=== PATIENT | female | born 1960 | race Caucasian/White ===

== ENCOUNTER 2018-07-11 09:06 | Inpatient (IN) ==
--- NOTE | 2018-07-11 09:51 | ED ---
HPI General Chief complaint: Neuro Symptoms/Deficit Stated complaint: Medical Time Seen by Provider: 07/11/18 09:30 History of Present Illness HPI narrative: Patient is a 58-year-old female presents emergency department for evaluation of left hand weakness. Patient states been going on for the past 2-3 days. Patient states she is unable to grasp, she is unable really to move or perform tasks of daily living with her left hand. Has not really noticed any other problems. No history of atrial fibrillation, not on any blood thinners. No chest pain no headache no shortness of breath no abdominal pain. Symptoms moderate, for the past 3 days, constant, associated signs symptoms in context as above. Related Data Home Medications Medication Instructions Recorded Confirmed No Known Home Medications 07/11/18 07/11/18 Allergies Allergy/AdvReac Type Severity Reaction Status Date / Time No Known Allergies Allergy Unverified 07/11/18 09:28 Review of Systems ROS: all other systems reviewed are negative [facility] Medical History Medical History No significant past medical history (Acute) Smoker (Acute) Surgical History Surgical History Hx of hand surgery (Acute) Social History Social History Substance History: No History of Abuse Second Hand Smoke Exposure: Yes Smoking Status: Never smoker Tobacco Type: Cigarettes How Often Do You Have a Drink Containing Alcohol: Monthly or less Recent Travel in [place] within the Last 8 Weeks: No Recent Out of Country Travel within the Last 8 Weeks: No Immunization History Tetanus Immunization: >5 Years Hx Influenza Vaccine This Season: No Exam Narrative Exam Narrative: GENERAL: Well-developed anxious appearing female who appears nontoxic. Thin. SKIN: Focused skin assessment warm/dry. HEAD: Atraumatic. Normocephalic. EYES: Pupils equal and round. No scleral icterus. No injection or drainage. ENT: No nasal bleeding or discharge. Mucous membranes pink and moist. NECK: Trachea midline. No JVD. CARDIOVASCULAR: Regular rate and rhythm. No murmur appreciated. RESPIRATORY: No accessory muscle use. Clear to auscultation. Breath sounds equal bilaterally. GASTROINTESTINAL: Abdomen soft, non-tender, nondistended. Hepatic and splenic margins not palpable. MUSCULOSKELETAL: No obvious deformities. No clubbing. No cyanosis. No edema. NEUROLOGICAL: Awake and alert and oriented, patient has an obvious facial droop on the left side of her face. The upper distribution of cranial nerve VII is unaffected. Extract movements are intact. Vision intact. Visual fritz intact. 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 She has severe limitations of flexion of the elbow, she has had limitations of shrugging her shoulder. There is also leg drift on the left side. Plantarflexion is relatively spared and 5 out of 5 strength bilaterally. PSYCHIATRIC: Appropriate mood and affect; insight and judgment normal. Course Initial Documented Vital Signs Temperature 97.7 F 07/11/18 09:10 Pulse Rate 74 07/11/18 09:10 Respiratory Rate 16 07/11/18 09:10 Blood Pressure 135/64 07/11/18 09:10 Pulse Oximetry 97 07/11/18 09:10 Last Documented Vital Signs Temperature 97.4 F L 07/11/18 16:00 Pulse Rate 54 L 07/11/18 16:00 Respiratory Rate 18 07/11/18 16:00 Blood Pressure 109/55 L 07/11/18 16:00 Pulse Oximetry 97 07/11/18 16:00 NIH Stroke Scale NIH Stroke Scale Level of Consciousness: 0-Alert Orientation Questions: 0-Answers both correct Responds to Commands: 0-Both tasks correct Gaze Eye Movement: 0-Horizontal movement WNL Visual Fritz: 0-No visual field defect Facial Movement: 3-Complete unilateral palsy Motor Functions Arm LEFT: 1-Drift before 10 seconds Motor Functions Arm RIGHT: 0-No drift Motor Functions Leg LEFT: 1-Drift before 5 seconds Motor Functions Leg RIGHT: 0-No drift Limb Ataxia: 0-No ataxia Sensory Loss: 0-No sensory loss Best Language: 0-Normal Articulation: 0-Normal Extinction or Inattention Sensory: 0-Absent Total: 5 Medical Decision Making MDM Narrative Medical decision making narrative: Patient room to the emergency department, it appears as though the patient has had a right MCA stroke. I have informed the patient this on arrival and is doing workup has been ordered. Patient will obligate need for admission to the hospital. EKG is actually a sinus rhythm. She is protecting her airway and cognitively is intact. She is well outside any time frame for systemic TPA or localized intervention from interventional radiology. After admission to Dr. Nieto, MRI results, this is actually malignancy with possibly some vasogenic edema. We discussed upgrade to atleast [place] [facility] care for close neurologic monitoring. Medical Screen Exam Complete: Yes Emergency Medical Condition: Yes Lab Data Result diagrams: 07/11/18 09:50 07/11/18 09:50 Lab Results 07/11/18 07/11/18 07/11/18 Range/Units 09:50 09:50 10:00 WBC 13.0 H (4.0-11.0) th/mm3 RBC 4.20 (4.00-5.30) mil/mm3 Hgb 11.5 L (11.6-15.3) gm/dL Hct 35.1 (35.0-46.0) % MCV 83.5 (80.0-100.0) fL MCH 27.4 (27.0-34.0) pg MCHC 32.8 (32.0-36.0) % RDW 14.3 (11.6-17.2) % Plt Count 369 (150-450) th/mm3 MPV 8.4 (7.0-11.0) fL Neut % (Auto) 58.5 (16.0-70.0) % Lymph % (Auto) 18.0 (9.0-44.0) % [place] % (Auto) 6.2 (0.0-8.0) % Eos % (Auto) 16.1 H (0.0-4.0) % Baso % (Auto) 1.2 (0.0-2.0) % Neut # (Auto) 7.6 (1.8-7.7) th/mm3 Lymph # (Auto) 2.3 (1.0-4.8) th/mm3 [place] # (Auto) 0.8 (0.0-0.9) th/mm3 Eos # (Auto) 2.1 H (0.0-0.4) th/mm3 Baso # (Auto) 0.2 (0.0-0.2) th/mm3 WBC Differential . Differential Comment Auto diff final Sodium 141 (136-145) meq/L Potassium 4.1 (3.5-5.1) meq/L Chloride 109 H (98-107) meq/L Carbon Dioxide 26.3 (21.0-32.0) meq/L Anion Gap 6 (5-15) meq/L BUN 9 (7-18) mg/dL Creatinine 0.60 (0.50-1.00) mg/dL Estimated GFR Greater than 89 (>89) mL/min POC Glucose (68-110) mg/dl Random Glucose 83 (74-106) mg/dL Calcium 8.2 L (8.5-10.1) mg/dL Total Bilirubin 0.3 (0.2-1.0) mg/dL AST 35 (15-37) U/L ALT 53 (10-53) U/L Alkaline Phosphatase 143 H (45-117) U/L Troponin I Less than 0.02 L (0.02-0.05) ng/mL Total Protein 7.1 (6.4-8.2) g/dL Albumin 3.1 L (3.4-5.0) g/dL Urine Color Straw (Yellw/Straw) Urine Clarity Clear (Clear) Urine pH 5.0 (5.0-8.5) Ur Specific [place] 1.004 (1.002-1.035) Urine Protein Negative (Neg-Trace) mg/dL Urine Glucose (UA) Negative (Negative) mg/dL Urine Ketones Negative (Negative) mg/dL Urine Occult Blood Moderate H (Negative) Urine Nitrate Negative (Negative) Urine Bilirubin Negative (Negative) Urine Urobilinogen Less than 2 (Less than 2) mg/dL Ur Leukocyte Esterase Negative (Negative) Urine RBC 2 (0-3) /hpf Urine WBC 1 (0-5) /hpf Ur Squamous Epith Cells 1 (0-5) /hpf Micro UA Comment Culture not ind Ur Microscopic Review Not Reportable Urine Culture Comments Culture not ind 07/11/18 Range/Units 16:43 WBC (4.0-11.0) th/mm3 RBC (4.00-5.30) mil/mm3 Hgb (11.6-15.3) gm/dL Hct (35.0-46.0) % MCV (80.0-100.0) fL MCH (27.0-34.0) pg MCHC (32.0-36.0) % RDW (11.6-17.2) % Plt Count (150-450) th/mm3 MPV (7.0-11.0) fL Neut % (Auto) (16.0-70.0) % Lymph % (Auto) (9.0-44.0) % [place] % (Auto) (0.0-8.0) % Eos % (Auto) (0.0-4.0) % Baso % (Auto) (0.0-2.0) % Neut # (Auto) (1.8-7.7) th/mm3 Lymph # (Auto) (1.0-4.8) th/mm3 [place] # (Auto) (0.0-0.9) th/mm3 Eos # (Auto) (0.0-0.4) th/mm3 Baso # (Auto) (0.0-0.2) th/mm3 WBC Differential Differential Comment Sodium (136-145) meq/L Potassium (3.5-5.1) meq/L Chloride (98-107) meq/L Carbon Dioxide (21.0-32.0) meq/L Anion Gap (5-15) meq/L BUN (7-18) mg/dL Creatinine (0.50-1.00) mg/dL Estimated GFR (>89) mL/min POC Glucose 105 (68-110) mg/dl Random Glucose (74-106) mg/dL Calcium (8.5-10.1) mg/dL Total Bilirubin (0.2-1.0) mg/dL AST (15-37) U/L ALT (10-53) U/L Alkaline Phosphatase (45-117) U/L Troponin I (0.02-0.05) ng/mL Total Protein (6.4-8.2) g/dL Albumin (3.4-5.0) g/dL Urine Color (Yellw/Straw) Urine Clarity (Clear) Urine pH (5.0-8.5) Ur Specific [place] (1.002-1.035) Urine Protein (Neg-Trace) mg/dL Urine Glucose (UA) (Negative) mg/dL Urine Ketones (Negative) mg/dL Urine Occult Blood (Negative) Urine Nitrate (Negative) Urine Bilirubin (Negative) Urine Urobilinogen (Less than 2) mg/dL Ur Leukocyte Esterase (Negative) Urine RBC (0-3) /hpf Urine WBC (0-5) /hpf Ur Squamous Epith Cells (0-5) /hpf Micro UA Comment Ur Microscopic Review Urine Culture Comments Imaging Data Radiologist's impression: Abdomen/Pelvis CT 07/11/18 00:00 CONCLUSION: 1. Right middle lobe malignant appearing mass suspicious for bronchogenic malignancy. 2. Left adrenal nodule is noted and indeterminate. Metastatic deposit can have this appearance. Chest CT 07/11/18 00:00 CONCLUSION: 1. There is a dominant partially necrotic-appearing soft tissue mass in the right middle lobe suspicious for primary bronchogenic malignancy, with a few scattered bilateral tiny noncalcified nodules which are nonspecific and the possibility of metastatic deposits are not excluded. There is right hilar adenopathy characteristic of metastatic disease. Head MRI 07/11/18 00:00 CONCLUSION: 1. Metastatic disease as above. Given the appearance most likely site is either lung or breast. Chest X-Ray 07/11/18 09:45 CONCLUSION: 6 mm mass right lower lobe suspicious for neoplastic process with minimal postobstructive changes. CT scan of the chest with contrast is suggested. Head CT 07/11/18 09:45 CONCLUSION: 1. Abnormal right mid sylvian region suspicious for neoplastic process. 2. MRI of the brain is suggested. . Head MRI 07/11/18 09:45 CONCLUSION: 1. Vasogenic edema in the right sylvian region suspicious for neoplastic process 2. Secondary of edema in the right superior cerebellar hemisphere that could be edema from an ischemic process. 3. There is no parenchymal hemorrhage. 4. Delayed contrasted CT scan is pending. Head MRA 07/11/18 09:45 CONCLUSION: 1. Negative MRA of the brain Neck MRA 07/11/18 09:45 CONCLUSION: 1. Negative MRA of the carotids for hemodynamically significant stenosis 2. Both vertebral arteries are patent. Percent stenosis is calculated using the diameter of the stenotic region over the diameter of the normal distal internal carotid artery Discharge Plan Discharge Disposition Patient Disposition: 30 Still Patient Discharge Condition Condition: Fair Discharge Details Diagnosis: Stroke, Brain metastasis Physicians Team ED Provider: Dane Bess Primary Care Provider: Michael Verduzco Attending Provider: Ta Nieto Other Providers: Jorge Corcoran ; Dakota Angela Justin D Discharge Interventions Interventions: ED Discharge Assessment Last Done: 07/11/18 14:22 Vital Signs Last Done: 07/11/18 14:22 Status ED Status: Left Department Discharge Information Discharge Date/Time: 07/11/18 14:25
--- NOTE | 2018-07-11 10:11 | XR ---
EXAM DATE: 07/11/2018 10:08 AM EDT AGE/SEX: 58 years / Female INDICATIONS: Short of breath CLINICAL DATA: This is the patient's initial encounter. Patient reports that signs and symptoms have been present for 1 day and indicates a pain score of 0/10. MEDICAL/SURGICAL HISTORY: None. None. COMPARISON: No prior exams available for comparison. FINDINGS: 6 cm mass right lower lobe. Left lung clear. The heart and pulmonary vascularity are normal. . The po rtion of the bony skeleton visualized is unremarkable. . CONCLUSION: 6 mm mass right lower lobe suspicious for neoplastic process with minimal postobstructive changes. CT scan of the chest with contrast is suggested. Electronically signed by: Deshawn Edouard MD 07/11/2018 10:09 AM EDT
[2018-07-11 10:21] LABS: Baso # (Auto) 0.2 th/mm3 (0.0-0.2); Baso % (Auto) 1.2 % (0.0-2.0); Eos # (Auto) 2.1 th/mm3 (0.0-0.4); Eos % (Auto) 16.1 % (0.0-4.0); Hematocrit 35.1 % (35.0-46.0); Hemoglobin 11.5 gm/dL (11.6-15.3); Lymph # (Auto) 2.3 th/mm3 (1.0-4.8); Mean Corpuscular HGB Conc 32.8 % (32.0-36.0); Mean Corpuscular Hemoglobin 27.4 pg (27.0-34.0); Mean Corpuscular Volume 83.5 fL (80.0-100.0); Mean Platelet Volume 8.4 fL (7.0-11.0); Mono # (Auto) 0.8 th/mm3 (0.0-0.9); Mono % (Auto) 6.2 % (0.0-8.0); Neut # (Auto) 7.6 th/mm3 (1.8-7.7); Neut % (Auto) 58.5 % (16.0-70.0); Platelet Count 369 th/mm3 (150-450); Red Cell Distribution Width 14.3 % (11.6-17.2)
--- NOTE | 2018-07-11 10:24 | CT ---
EXAM DATE: 07/11/2018 10:18 AM EDT AGE/SEX: 58 years / Female INDICATIONS: Left sided facial droop and left hand weakness for three days. CLINICAL DATA: This is the patient's initial encounter. Patient reports that signs and symptoms have been present for 1 day and indicates a pain score of 0/10. MEDICAL/SURGICAL HISTORY: None. None. RADIATION DOSE: 56.35 CTDI (mGy) COMPARISON: [facility] [place] W/O CONTRAST, 07/11/2018. . TECHNIQUE: CT of the head without contrast. Using automated exposure control and adjustment of the mA and/or kV according to patient size, radiation dose was kept as low as reasonably achievable to ob tain optimal diagnostic quality images. DICOM format image data is available electronically for revi ew and comparison. FINDINGS: Study is abnormal. There is a large area of vasogenic edema in the right mid sylvian region or suspic ious for neoplastic process and a subacute stroke. Left hemisphere is unremarkable. Posterior fossa unremarkable. CONCLUSION: 1. Abnormal right mid sylvian region suspicious for neoplastic process. 2. MRI of the brain is suggested. . Electronically signed by: Deshawn Edouard MD 07/11/2018 10:23 AM EDT
[2018-07-11 10:28] LABS: Bilirubin,Urine Negative (Negative); Clarity,Urine Clear (Clear); Color,Urine Straw (Yellw/Straw); Glucose,Urine (UA) Negative (Negative); Leukocyte Esterase,Urine Negative (Negative); Nitrite,Urine Negative (Negative); Specific Gravity,Urine 1.004 (1.002-1.035); Squamous Epithelial Cell,Urine 1 /hpf (0-5)
[2018-07-11 11:02] LABS: Alkaline Phosphatase 143 U/L (45-117); Total Protein 7.1 g/dL (6.4-8.2)
[2018-07-11 11:20] LABS: Alanine Aminotransferase 53 U/L (10-53); Albumin 3.1 g/dL (3.4-5.0); Anion Gap 6 meq/L (5-15); Aspartate Aminotransferase 35 U/L (15-37); Blood Urea Nitrogen 9 mg/dL (7-18); Calcium 8.2 mg/dL (8.5-10.1); Carbon Dioxide 26.3 meq/L (21.0-32.0); Chloride 109 meq/L (98-107); Glomerular Filtration Rate Greater Than 89 mL/min (>89); Glucose,Random 83 mg/dL (74-106); Potassium 4.1 meq/L (3.5-5.1); Sodium 141 meq/L (136-145)
[2018-07-11] MEDS ORDERED: Gadobutrol PF 10 MMOL/10 ML Vial (for RAD) IV.SIG ONE (11:24)
--- NOTE | 2018-07-11 11:48 | MR ---
EXAM DATE: 07/11/2018 11:34 AM EDT AGE/SEX: 58 years / Female INDICATIONS: Left sided weakness. CLINICAL DATA: This is the patient's initial encounter. Patient reports that signs and symptoms have been present for 3 days and indicates a pain score of 0/10. MEDICAL/SURGICAL HISTORY: None. . Left hand surgery. COMPARISON: [facility] – [place], MRA HEAD W/O CONTRAST, 07/11/2018. . TECHNIQUE: Multiplanar, multisequence examination of the brain was performed without contrast. FINDINGS: Cerebrum: There is edema in the right mid sylvian region without parenchymal hemorrhage. There is min imal restricted diffusion evident. Edema is more in the white matter in the nicolas matter and does not extend to the cortical surface of the brain also suspicious for a neoplastic process. Scattered areas of periventricular white matter changes are noted in the supra tentorial brain. Ventricular size is appropriate. There is no parenchymal hemorrhage. There are no extra-axial fluid collections appreciat ed. Posterior fossa: Edema is seen in the medial right cerebellar hemisphere inferior cerebellar distribu tion that could be ischemia. Subtle metastatic disease cannot be entirely excluded. Fourth ventricle is midline. Patient is no return for delayed postcontrast imaging since she had contrast with the MRA of the cifuentes tids. CONCLUSION: 1. Vasogenic edema in the right sylvian region suspicious for neoplastic process 2. Secondary of edema in the right superior cerebellar hemisphere that could be edema from an ischem ic process. 3. There is no parenchymal hemorrhage. 4. Delayed contrasted CT scan is pending. Electronically signed by: Deshawn Edouard MD 07/11/2018 11:47 AM EDT
--- NOTE | 2018-07-11 11:50 | MR ---
EXAM DATE: 07/11/2018 11:31 AM EDT AGE/SEX: 58 years / Female INDICATIONS: Left sided weakness. CLINICAL DATA: This is the patient's initial encounter. Patient reports that signs and symptoms have been present for 3 days and indicates a pain score of 0/10. MEDICAL/SURGICAL HISTORY: None. . Left hand surgery. COMPARISON: [facility] [place], MR HEAD W/O CONTRAST, 07/11/2018. . TECHNIQUE: 3D [id number] MRA was performed. Source images, multiplanar STS MIP, and 3D volum e MIP reconstructions were reviewed. FINDINGS: There is excellent visualization of the major intracranial arteries out to the second-order branch ve ssels. There is no evidence for aneurysm, vessel truncation or stenosis, and no evidence for vascula r malformation. CONCLUSION: 1. Negative MRA of the brain Electronically signed by: Deshawn Edouard MD 07/11/2018 11:49 AM EDT
--- NOTE | 2018-07-11 12:00 | MR ---
EXAM DATE: 07/11/2018 11:55 AM EDT AGE/SEX: 58 years / Female INDICATIONS: Left sided weakness. CLINICAL DATA: This is the patient's initial encounter. Patient reports that signs and symptoms have been present for 3 days and indicates a pain score of 0/10. MEDICAL/SURGICAL HISTORY: None. . Left hand surgery. COMPARISON: No prior exams available for comparison. TECHNIQUE: 10cc ml Gadavist (gadobutrol) contrast infused MRA (single exam dose) of the extracrania l circulation was performed using a neurovascular coil. Postprocessing was performed, including rota ting sub-volume maximum intensity projections of each carotid artery, rotating full-volume maximum in tensity projections of both carotid arteries, sagittal and coronal sliding thin-slab reformations of each carotid artery, and left oblique sliding thin-slab reformation through the aortic arch to includ e the origin of the arch branch vessels. FINDINGS: Aortic Arch : There is a three-vessel origin of the great vessels from the aorta. No evidence of o stial narrowing. Right Carotid : The common carotid artery is intact. The carotid bulb has a normal configuration wi thout ulceration or narrowing. The internal carotid artery lumen is smooth without stenosis. The ex ternal carotid artery is intact. Left Carotid : The common carotid artery is intact. The carotid bulb has a normal configuration wit hout ulceration or narrowing. The internal carotid artery lumen is smooth without stenosis. The ext ernal carotid artery is intact. Vertebrals : The vertebral arteries have a symmetric diameter. No stenotic lesions are seen. CONCLUSION: 1. Negative MRA of the carotids for hemodynamically significant stenosis 2. Both vertebral arteries are patent. Percent stenosis is calculated using the diameter of the stenotic region over the diameter of the nor mal distal internal carotid artery Electronically signed by: Deshawn Edouard MD 07/11/2018 11:59 AM EDT
--- NOTE | 2018-07-11 12:03 | P.CONNEU ---
History of Present Illness Service: Neurology Primary Care Provider: Michael Verduzco Chief Complaint: Stroke History of Present Illness: 58-year-old female admitted for left-sided weakness. Symptoms of left-sided weakness 3 days. Therefore not a candidate for IV TPA. Does not take any medications. Smokes 2 packs a day's been doing for decades. 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 Denies any head or neck trauma any history of fever night sweats chills any history of previous TIA stroke or A. fib. No history of blood clots. CT brain demonstrates right hemispheric lesion Review of Systems All other systems reviewed negative except as stated in HPI PMFSH - History History Provided By: Patient - Medical History Medical History: Medical History (Last Updated 07/11/18 @ 09:34 by Marjorie Graham) No significant past medical history Smoker - Surgical History Surgical History: Surgical History (Last Updated 07/11/18 @ 09:34 by Marjorie Graham) Hx of hand surgery - Tobacco History Second Hand Smoke Exposure: Yes Tobacco Use In Past 30 Days: Yes Smoking Status: Never smoker Tobacco Type: Cigarettes - Alcohol History How Often Do You Have a Drink Containing Alcohol: Monthly or less - Substance Use History Substance History: No History of Abuse - Travel History Recent Travel in the [place] Within the Last 8 Weeks: No Recent Travel Out of the Country Within the Last 8 Weeks: No - Immunization History Tetanus Immunization: >5 Years Hx Influenza Vaccine This Season: No Medications and Allergies Active Medications: Active Medications Sodium Chloride (Ns Flush) 2 ml IV.FLUSH PRN PRN PRN Reason: FLUSH AFTER USING IV ACCESS Allergies Allergy/AdvReac Type Severity Reaction Status Date / Time No Known Allergies Allergy Unverified 07/11/18 09:28 Home Medications Medication Instructions Recorded Confirmed Type No Known Home Medications 07/11/18 07/11/18 History Exam Vital signs: Vital Signs 07/11/18 09:10 07/11/18 09:32 07/11/18 09:45 Temperature 97.7 F 97.8 F Pulse Rate 74 60 65 Respiratory Rate 16 16 Blood Pressure 135/64 138/62 Pulse Oximetry 97 99 98 07/11/18 10:50 Temperature 97.8 F Pulse Rate 61 Respiratory Rate 16 Blood Pressure 143/60 H Pulse Oximetry 98 Intake & Output 07/10/18 07/11/18 07/11/18 18:59 06:59 18:59 Weight 63.503 kg Narrative: GENERAL: in NAD, SKIN: Warm and dry. HEAD: Atraumatic. Normocephalic. EYES: Pupils equal and round. No scleral icterus. ENT: No nasal bleeding or discharge. Mucous membranes pink and moist. NECK: Trachea midline. No JVD. CARDIOVASCULAR: Regular rate and rhythm. RESPIRATORY: No accessory muscle use. GASTROINTESTINAL: Abdomen soft, non-tender, nondistended. MUSCULOSKELETAL: Extremities without clubbing, cyanosis, or edema. No obvious deformities. NEUROLOGICAL: Awake and alert. No aphasia, mildly dysarthric speech, follows, reduced left nasolabial fold, mild left hemiparesis 3-4 out of 5, left hemisensory brisk reflex on the left gait not assessed secondary to fall risk PSYCHIATRIC: Appropriate mood and affect; insight and judgment normal. - Constitutional no acute distress - Routine HEENT Exam Head: Present: normocephalic Results - Labs CBC & Chem 7: 07/11/18 09:50 07/11/18 09:50 Labs: Laboratory Results - last 24 hr 07/11/18 07/11/18 07/11/18 09:50 09:50 10:00 WBC 13.0 H RBC 4.20 Hgb 11.5 L Hct 35.1 MCV 83.5 MCH 27.4 MCHC 32.8 RDW 14.3 Plt Count 369 MPV 8.4 Neut % (Auto) 58.5 Lymph % (Auto) 18.0 [place] % (Auto) 6.2 Eos % (Auto) 16.1 H Baso % (Auto) 1.2 Neut # (Auto) 7.6 Lymph # (Auto) 2.3 [place] # (Auto) 0.8 Eos # (Auto) 2.1 H Baso # (Auto) 0.2 WBC Differential . Differential Comment Auto diff final Sodium 141 Potassium 4.1 Chloride 109 H Carbon Dioxide 26.3 Anion Gap 6 BUN 9 Creatinine 0.60 Estimated GFR Greater than 89 Random Glucose 83 Calcium 8.2 L Total Bilirubin 0.3 AST 35 ALT 53 Alkaline Phosphatase 143 H Troponin I Less than 0.02 L Total Protein 7.1 Albumin 3.1 L Urine Color Straw Urine Clarity Clear Urine pH 5.0 Ur Specific [place] 1.004 Urine Protein Negative Urine Glucose (UA) Negative Urine Ketones Negative Urine Occult Blood Moderate H Urine Nitrate Negative Urine Bilirubin Negative Urine Urobilinogen Less than 2 Ur Leukocyte Esterase Negative Urine RBC 2 Urine WBC 1 Ur Squamous Epith Cells 1 Micro UA Comment Culture not ind Ur Microscopic Review Not Reportable Urine Culture Comments Culture not ind - Imaging Impressions Chest X-Ray 07/11/18 09:45 CONCLUSION: 6 mm mass right lower lobe suspicious for neoplastic process with minimal postobstructive changes. CT scan of the chest with contrast is suggested. Head CT 07/11/18 09:45 CONCLUSION: 1. Abnormal right mid sylvian region suspicious for neoplastic process. 2. MRI of the brain is suggested. . Head MRI 07/11/18 09:45 CONCLUSION: 1. Vasogenic edema in the right sylvian region suspicious for neoplastic process 2. Secondary of edema in the right superior cerebellar hemisphere that could be edema from an ischemic process. 3. There is no parenchymal hemorrhage. 4. Delayed contrasted CT scan is pending. Head MRA 07/11/18 09:45 CONCLUSION: 1. Negative MRA of the brain Review/Management - Diagnosis (1) Brain metastasis Code(s): C79.31 - Secondary malignant neoplasm of brain Status: Acute Current Visit: Yes (2) Tobacco use Code(s): Z72.0 - Tobacco use Status: Acute Current Visit: Yes (3) Lung cancer metastatic to brain Code(s): C34.90 - Malignant neoplasm of unspecified part of unspecified bronchus or lung; C79.31 - Secondary malignant neoplasm of brain Status: Acute Current Visit: Yes - Review/Management Plan: MRI brain findings suggesting vasogenic edema not ischemic stroke. Suspicious for mass lesion with her history of tobacco use and lesion occurring in 2 different brain regions metastatic disease is high on the differential possibly from lung cancer. Chest x-ray suspicious for masses well Recommendations CT abdomen chest pelvis Hematology evaluation Neurosurgical evaluation We will not start steroids until seen by specialists
--- NOTE | 2018-07-11 12:09 | MR ---
EXAM DATE: 07/11/2018 12:04 PM EDT AGE/SEX: 58 years / Female INDICATIONS: Left sided weakness. CLINICAL DATA: This is the patient's initial encounter. Patient reports that signs and symptoms have been present for 3 days and indicates a pain score of 0/10. MEDICAL/SURGICAL HISTORY: None. . Left hand surgery. COMPARISON: [facility] [place], MR HEAD W/O CONTRAST, 07/11/2018. . TECHNIQUE: Multiplanar, multisequence examination of the brain was performed with 10CC ml Gadavist (g adobutrol) contrast as a single exam dose. FINDINGS: Follow-up contrasted acquisitions were obtained following the contrast and MRA of the carotids. These reveal metastatic disease. 3 abnormal areas of contrast enhancement are identified, one high in the right centrum semiovale kaley uring slightly over 1 cm.. 2 are in the right cerebellar hemisphere. Largest in the cerebellar hemisp here measures 1.4 cm. These are associated with [id number]-ji-[id number] edema. CONCLUSION: 1. Metastatic disease as above. Given the appearance most likely site is either lung or breast. Electronically signed by: Deshawn Edouard MD 07/11/2018 12:07 PM EDT
--- NOTE | 2018-07-11 12:48 | CT ---
EXAM DATE: 07/11/2018 12:42 PM EDT AGE/SEX: 58 years / Female INDICATIONS: Neoplasm CLINICAL DATA: This is the patient's initial encounter. Patient reports that signs and symptoms have been present for 2 days and indicates a pain score of 9/10. MEDICAL/SURGICAL HISTORY: Carcinoma, lung. Brain mets . Hand surgery RADIATION DOSE: 5.36 CTDI (mGy) ; Combined studies COMPARISON: [facility], CHEST 1V SINGLE AP, 07/11/2018. . TECHNIQUE: Multiple contiguous axial images were obtained through the chest during bolus infusion of 95ML ml Omnipaque 350 (iohexol) nonionic water-soluble contrast as a cumulative dose for multiple e xams. Images were obtained in suspended respiration using multiple row detector helical technique. Using automated exposure control and adjustment of the mA and/or kV according to patient size, radia tion dose was kept as low as reasonably achievable to obtain optimal diagnostic quality images. DICO M format image data is available electronically for review and comparison. FINDINGS: There is a large partially necrotic irregular soft tissue mass in the right middle lobe abutting the mediastinum. There is surrounding patchy groundglass infiltrate. There is necrotic-appearing right hi lar adenopathy measuring up to 1.5 cm in short axis dimension. There are no pleural or pericardial ef fusion seen. There is a nodule of the lateral limb of the left adrenal gland measuring 1.4 x 1 cm in size. Right adrenal unremarkable. The right middle lobe mass abuts the mediastinum as well as the rig ht middle lobe pleura anteriorly. There are no worrisome osseous lesions. There are 2 nodular foci al yaya the oblique fissure in the right lower lobe measuring 4.7 mm, and 4.5 mm. There are 2 pleural-bas ed nodules along the oblique fissure in the left lower lobe measuring 3.4 mm and 3.7 mm as well as a left lower lobe pleural-based nodule posteriorly measuring 5 mm. There is also a noncalcified pleural -based nodule in the left lower lobe posteriorly measuring 3.9 mm on image 24. CONCLUSION: 1. There is a dominant partially necrotic-appearing soft tissue mass in the right middle lobe suspic ious for primary bronchogenic malignancy, with a few scattered bilateral tiny noncalcified nodules wh ich are nonspecific and the possibility of metastatic deposits are not excluded. There is right hilar adenopathy characteristic of metastatic disease. Electronically signed by: Tylor Arndt MD 07/11/2018 12:47 PM EDT
--- NOTE | 2018-07-11 12:50 | P.HPIM ---
History of Present Illness Service: [place] Primary Care Physician: Michael Verduzco Chief Complaint: Stroke History of Present Illness: Mrs. Aaron is a 58 yo F with PMH of tobacco abuse who presented to [facility] ED with slurred speech and left extremity weakness. 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 She also stated that her left arm was numb. Patient thought this was arthritis so kept working until she was told to leave. Patient states that she did not notice change in speech but she was told that her speech was slurred by her boyfriend 1.5 weeks ago. Last night, patient noticed that her left leg was weaker, and that her left arm started to hurt. For these reasons, she called her marketing project manager and was brought to the ED today. Patient does not report associated vision changes. She has chronic headaches but no changes. She denies change in bowel/bladder dysfunction with exception of her chronic constipation. She has had more shortness of breath lately but denies chest pain. Patient reports ~80 pk years smoking and left hand reconstruction but otherwise denies medical problems. PMH- no problems PSH- reconstruction of L hand Allergies- none FH- family - heart attacks, cancer; unspecified SH- Smoking- 2PPD for since 17. No drinking, no drugs Inpatient Certification: I certify that the inpatient services were ordered in accordance with Medicare regulations governing the order. This includes certification that hospital inpatient services are reasonable and necessary and in the case of services not specified as inpatient-only under 42 CFR 419.22(n), that they are appropriately provided as inpatient services in accordance to with the 2-midnight benchmark under 43 CFR 412.3(e) Estimated Total Length of Stay (Days): 3 Plans for Post Hospital Care: Home Review of Systems All other systems reviewed negative except as stated in HPI Ears, Nose, Mouth, and Throat: Denies sinus pain Respiratory: Denies cough Gastrointestinal: Denies loose stools, Denies nausea, Denies vomiting Genitourinary: Denies painful urination, Denies urinary urgency Musculoskeletal: Reports muscle weakness, Reports radiating pain into limb Skin/Breast: Denies rash, Denies sores Neurologic: Denies confusion, Denies dizziness Hematologic/Lymphatic: Denies easy bleeding, Denies easy bruising PMFSH - History History Provided By: Patient - Medical History Medical History: Medical History (Last Updated 07/11/18 @ 09:34 by Marjorie Graham) No significant past medical history Smoker - Surgical History Surgical History: Surgical History (Last Updated 07/11/18 @ 09:34 by Marjorie Graham) Hx of hand surgery - Family History Family History: Family History (Last Updated 07/12/18 @ 00:22 by Ta Nieto MD) Other Cancer Coronary artery disease - Social History I have reviewed the patient's Social History: Yes - Tobacco History Second Hand Smoke Exposure: Yes Tobacco Use In Past 30 Days: Yes Smoking Status: Never smoker Tobacco Type: Cigarettes - Alcohol History How Often Do You Have a Drink Containing Alcohol: Monthly or less - Substance Use History Substance History: No History of Abuse - Travel History Recent Travel in the [place] Within the Last 8 Weeks: No Recent Travel Out of the Country Within the Last 8 Weeks: No - Immunization History Tetanus Immunization: >5 Years Hx Influenza Vaccine This Season: No Medications and Allergies Active Medications: Active Medications Acetaminophen (Tylenol) 650 mg PO Q4H PRN PRN Reason: Temp > 100.4 Ondansetron HCl (Zofran Inj) 4 mg IV.PUSH Q6H PRN PRN Reason: NAUSEA OR VOMITING Sodium Chloride (Ns Flush) 2 ml IV.FLUSH PRN PRN PRN Reason: FLUSH AFTER USING IV ACCESS Allergies Allergy/AdvReac Type Severity Reaction Status Date / Time No Known Allergies Allergy Unverified 07/11/18 09:28 Home Medications Medication Instructions Recorded Confirmed Type No Known Home Medications 07/11/18 07/11/18 History Exam Vital signs: Vital Signs 07/11/18 09:10 07/11/18 09:32 07/11/18 09:45 Temperature 97.7 F 97.8 F Pulse Rate 74 60 65 Respiratory Rate 16 16 Blood Pressure 135/64 138/62 Pulse Oximetry 97 99 98 07/11/18 10:50 07/11/18 12:37 Temperature 97.8 F 97.8 F Pulse Rate 61 67 Respiratory Rate 16 16 Blood Pressure 143/60 H 124/77 Pulse Oximetry 98 98 Intake & Output 07/10/18 07/11/18 07/11/18 18:59 06:59 18:59 Weight 63.503 kg Narrative: Gen: No acute distress Skin: No visible lesions EYES: EOM I. PERRLA ENT: Mucous membranes pink and moist. NECK: No cervical lymphadenopathy; questionable supraclavicular lymphadenopathy CARDIOVASCULAR: Regular rate and rhythm. No murmurs appreciated. RESPIRATORY: CTAB; normal rate GASTROINTESTINAL: Abdomen soft, non-tender, nondistended. Hepatic and splenic margins not palpable. MUSCULOSKELETAL: No Le edema or calf tenderness. Muscle strength as below NEUROLOGICAL: Awake, alert, oriented. Unilateral facial droop on left. Slurred speech. EOM I. LUE with minimal tablet repair strength; she is able to lift arm to ~ level of clavicle with difficulty. patient able to lift bilateral lower extremities against gravity; left lower extremity asymmetrically weaker. Normal peripheral sensation. PSYCHIATRIC: Anxious; intermittently tearful Results - Labs CBC & Chem 7: 07/11/18 09:50 07/11/18 09:50 Labs: Short CBC 07/11/18 Range/Units 09:50 WBC 13.0 H (4.0-11.0) th/mm3 Hgb 11.5 L (11.6-15.3) gm/dL Hct 35.1 (35.0-46.0) % Plt Count 369 (150-450) th/mm3 BMP 07/11/18 09:50 Sodium 141 Potassium 4.1 Chloride 109 H Carbon Dioxide 26.3 BUN 9 Creatinine 0.60 Calcium 8.2 L Cardiac Enzymes 07/11/18 Range/Units 09:50 Troponin I Less than 0.02 L (0.02-0.05) ng/mL Liver Function 07/11/18 Range/Units 09:50 Total Bilirubin 0.3 (0.2-1.0) mg/dL AST 35 (15-37) U/L ALT 53 (10-53) U/L Alkaline Phosphatase 143 H (45-117) U/L Albumin 3.1 L (3.4-5.0) g/dL Urine 07/11/18 Range/Units 10:00 Urine Color Straw (Yellw/Straw) Urine Clarity Clear (Clear) Urine pH 5.0 (5.0-8.5) Ur Specific [place] 1.004 (1.002-1.035) Urine Protein Negative (Neg-Trace) mg/dL Urine Glucose (UA) Negative (Negative) mg/dL - Imaging Impressions Head MRI 07/11/18 00:00 CONCLUSION: 1. Metastatic disease as above. Given the appearance most likely site is either lung or breast. Chest X-Ray 07/11/18:45 CONCLUSION: 6 mm mass right lower lobe suspicious for neoplastic process with minimal postobstructive changes. CT scan of the chest with contrast is suggested. Head CT 07/11/18 09:45 CONCLUSION: 1. Abnormal right mid sylvian region suspicious for neoplastic process. 2. MRI of the brain is suggested. . Head MRI 07/11/18:45 CONCLUSION: 1. Vasogenic edema in the right sylvian region suspicious for neoplastic process 2. Secondary of edema in the right superior cerebellar hemisphere that could be edema from an ischemic process. 3. There is no parenchymal hemorrhage. 4. Delayed contrasted CT scan is pending. Head MRA 07/11/18:45 CONCLUSION: 1. Negative MRA of the brain Neck MRA 07/11/18:45 CONCLUSION: 1. Negative MRA of the carotids for hemodynamically significant stenosis 2. Both vertebral arteries are patent. Percent stenosis is calculated using the diameter of the stenotic region over the diameter of the normal distal internal carotid artery Caprini VTE Risk Assessment Caprini VTE Risk Assessment: Moderate/High Risk (score >= 2) Caprini Risk Assessment Model: Point Value = 1 Point Value = 2 Point Value = 3 Point Value = 5 Age 41-60 Minor surgery BMI > 25 kg/m2 Swollen legs Varicose veins or History of unexplained or recurrent spontaneous Oral contraceptives or hormone replacement Sepsis (< 1 month) Serious lung disease, including pneumonia (< 1 month) Abnormal pulmonary function Acute myocardial infarction Congestive heart failure (< 1 month) History of inflammatory bowel disease Medical patient at bed rest Age 61-74 Arthroscopic surgery Major open surgery (> 45 min) Laparoscopic surgery (> 45 min) Malignancy Confined to bed (> 72 hours) Immobilizing plaster cast Central venous access Age >= 75 History of VTE Family history of VTE Factor V Leiden Prothrombin [id number] Lupus anticoagulant Anticardiolipin antibodies Elevated serum homocysteine Heparin-induced thrombocytopenia Other congenital or acquired thrombophilia Stroke (< 1 month) Elective arthroplasty Hip, pelvis, or leg fracture Acute spinal cord injury (< 1 month) Prophylaxis Regimen: Total Risk Factor Score Risk Level Prophylaxis Regimen 0-1 Low Early ambulation 2 Moderate Order ONE of the following: *Sequential Compression Device (SCD) *Heparin 5000 units SQ BID 3-4 Higher Order ONE of the following medications: *Heparin 5000 units SQ TID *Enoxaparin/Lovenox 40 mg SQ daily (WT < 150 kg, CrCl > 30 mL/min) *Enoxaparin/Lovenox 30 mg SQ daily (WT < 150 kg, CrCl > 10-29 mL/min) *Enoxaparin/Lovenox 30 mg SQ BID (WT < 150 kg, CrCl > 30 mL/min) AND/OR *Sequential Compression Device (SCD) 5 or more Highest Order ONE of the following medications: *Heparin 5000 units SQ TID (Preferred with Epidurals) *Enoxaparin/Lovenox 40 mg SQ daily (WT < 150 kg, CrCl > 30 mL/min) *Enoxaparin/Lovenox 30 mg SQ daily (WT < 150 kg, CrCl > 10-29 mL/min) *Enoxaparin/Lovenox 30 mg SQ BID (WT < 150 kg, CrCl > 30 mL/min) AND *Sequential Compression Device (SCD) Assessment and Plan - Plan Mrs. Aaron is a 58 yo F with: Neurologic deficits Impression: Facial droop, left upper extremity and lower extremity weakness. Imaging suggestive of metastatic cancer Head CT- 1. Abnormal right mid sylvian region suspicious for neoplastic process. 2. MRI of the brain is suggested. Head MRI- 1. Metastatic disease as above. Given the appearance most likely site is either lung or breast. MRA head- negative Neck MRA- negative -Neurology consulted -Neurosurgery consulted -No steroids until NS eval -PT/ST/OT -DVT PPX Suspicion for malignancy Impression: Concern for metastatic cancer CT Chest- There is a dominant partially necrotic-appearing soft tissue mass in the right middle lobe suspicious for primary bronchogenic malignancy, with a few scattered bilateral tiny noncalcified nodules which are nonspecific and the possibility of metastatic deposits are not excluded. There is right hilar adenopathy characteristic of metastatic disease. CT A/P- 1. Right middle lobe malignant appearing mass suspicious for bronchogenic malignancy. 2. Left adrenal nodule is noted and indeterminate. Metastatic deposit can have this appearance. CXR- 6mm mass in RLL suspicious for neoplastic process with minimal postobstructive changes -Hematology consulted Anxiety Imrpession: Patient tearful, intermittently anxious about high suspicion for malignancy due to recent family from cancer -Discussed PRN anxiolytic if desired; will give Ativan as needed DVT PPX -SCD's until specialists evaluation; will plan to start chemical PPX based on any biopsy plans Code Status: Full code
--- NOTE | 2018-07-11 13:15 | CT ---
EXAM DATE: 07/11/2018 12:43 PM EDT AGE/SEX: 58 years / Female INDICATIONS: Anomaly CLINICAL DATA: This is the patient's initial encounter. Patient reports that signs and symptoms have been present for 2 days and indicates a pain score of 9/10. MEDICAL/SURGICAL HISTORY: Carcinoma, lung. Brain mets . Hand surgery ORAL CONTRAST: No oral contrast ingested. RADIATION DOSE: 5.36 CTDI (mGy) ; Combined studies COMPARISON: [facility] [place], CT CHEST W CONTRAST, 07/11/2018. . TECHNIQUE: Multiple contiguous axial images were obtained through the abdomen and pelvis following b olus infusion of 95ML ml Omnipaque 350 (iohexol) nonionic water-soluble contrast as a cumulative do se for multiple exams. No oral contrast ingested. Using automated exposure control and adjustment of the mA and/or kV according to patient size, radiation dose was kept as low as reasonably achievable to obtain optimal diagnostic quality images. DICOM format image data is available electronically for review and comparison. FINDINGS: Please refer to CT chest report from the same day for description of supradiaphragmatic findings. Par tially necrotic right middle lobe malignant appearing mass identified. There is a 1.4 x 1 cm left adr enal nodule involving the lateral limb. The kidneys, spleen, pancreas, stomach, liver, gallbladder ar e unremarkable. Urinary bladder is unremarkable. 2.5 cm uterine fibroid suspected at the level of the fundus of the uterus to the left of midline. No adnexal masses. No adenopathy. The osseous structure s are intact. CONCLUSION: 1. Right middle lobe malignant appearing mass suspicious for bronchogenic malignancy. 2. Left adrenal nodule is noted and indeterminate. Metastatic deposit can have this appearance. Electronically signed by: Tylor Arndt MD 07/11/2018 1:14 PM EDT
[2018-07-11] MEDS: Sod Chloride 0.9% Inj 1,000 ML IV.CONT SCH (14:07)
[2018-07-11] MEDS ORDERED: LORazepam 0.5 MG Tablet PO PRN (16:46)
[2018-07-12] MEDS: Sod Chloride 0.9% Inj 1,000 ML IV.CONT SCH ×3 (00:20→19:14)
--- NOTE | 2018-07-12 02:59 | MB ---
cc: Mike Angela MD DATE: 07/11/2018 REASON FOR CONSULTATION: Consult requested by neurologist, Dr. Corcoran, for evaluation of metastatic disease to the brain. HISTORY OF PRESENT ILLNESS: Irais is a 58-year-old female. She is under the care of PCP, Dr. Verduzco. The patient has no significant past medical history. However, she has smoked cigarettes, 1-1/2 pack a day since age 17. 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 She recently noticed weakness of the left upper arm. She was dropping plates and other things. Today, in the morning, she noticed weakness of the left leg as well. She came into the emergency room for further evaluation. She had a CT scan of the brain and MRI of the brain, which showed 3 lesions in the brain consistent with metastasis. She had a CT scan of the abdomen and pelvis, which showed right middle lobe, malignant-appearing mass suspicious for bronchogenic malignancy. There is also a left adrenal nodule noted, which is indeterminate and metastatic deposit cannot be ruled out. The CT of the chest showed right middle lobe lung mass with few scattered bilateral tiny noncalcified nodules consistent with metastatic deposits. There is also significant right hilar lymphadenopathy noted as well. Bronchogenic carcinoma is strongly suspected. I have been asked to see her for further evaluation. The patient states that she still has weakness on the left side of the body, more in the left arm than the leg. She has headaches. She denies any history of anorexia or weight loss. She does not have any seizure, cough or hemoptysis. The rest of the review of systems is negative. PAST MEDICAL HISTORY: None. PAST SURGICAL HISTORY: Left hand surgery. ALLERGIES: None. MEDICATIONS PRIOR TO COMING TO HOSPITAL: None. FAMILY HISTORY: None for malignancy. SOCIAL HISTORY: She does not drink alcohol, but smokes cigarettes, 1-1/2 pack a day since age 17. 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 PHYSICAL EXAMINATION: GENERAL: She is a well-developed, well-nourished white female, in no apparent distress. VITAL SIGNS: Temperature 97.4, heart rate is 54, blood pressure 109/55. HEAD, EYES, EARS, NOSE, AND THROAT: Pupils equal, round, reactive to light and accommodation, extraocular movements intact. Anicteric. No oral lesions noted. No thrush noted. NECK: Supple. No JVD. No masses noted. LUNGS: Clear. No wheezing, rhonchi, or rales. HEART: Regular rate and rhythm. No murmur heard. ABDOMEN: Soft and nontender. No hepatosplenomegaly. No abnormal bowel sounds. No guarding or rigidity noted. EXTREMITIES: No pedal edema. No cyanosis, no clubbing. NEUROLOGIC: Left-sided weakness noted. She is more weak in the left upper arm than the leg. SKIN: No bruises or petechiae noted. BREASTS: No masses noted. LYMPH NODES: No cervical, supraclavicular, or axillary lymphadenopathy noted. BACK: There is no spinal tenderness noted. ASSESSMENT: 1. Right middle lobe lung mass with right hilar lymphadenopathy and multiple bilateral pulmonary nodules, most likely consistent with bronchogenic carcinoma. 2. Multiple, at least 3, brain lesions consistent with metastasis from lung primary. 3. Tobaccoism. PLAN: I have reviewed her available records and I had an extensive discussion with the patient regarding the CT scan of the chest, abdomen and pelvis and MRI of the brain findings. We discussed that given her history of heavy cigarette smoking, this is most likely consistent with bronchogenic carcinoma with brain metastasis. I have recommended a biopsy of the right middle lobe lung mass. The patient agreed with that. I will consult interventional radiologist for CT-guided core needle biopsy of the right lung mass for tissue diagnosis. I will also consult radiation oncology for radiation treatment. Once we have the tissue diagnosis, then we will discuss with the patient regarding the treatment options in terms of chemotherapy. The patient has asked questions and these were answered to her satisfaction. Thank you for asking my opinion. MD YOHANNES Mei/mana , 12:35 AM , 12:46 AM DOLORES
[2018-07-12] MEDS ORDERED: LORazepam 0.5 MG Tablet PO ONE (04:25)
[2018-07-12] MEDS: Acetaminophen 325 MG Tablet PO PRN ×2 (04:40→18:00)
[2018-07-12 05:38] LABS: Baso % (Auto) 0.1 % (0.0-2.0); Eos % (Auto) 17.8 % (0.0-4.0); Hematocrit 33.4 % (35.0-46.0); Hemoglobin 11.1 gm/dL (11.6-15.3); Lymph # (Auto) 2.6 th/mm3 (1.0-4.8); Lymph % (Auto) 23.2 % (9.0-44.0); Mean Corpuscular HGB Conc 33.4 % (32.0-36.0); Mean Corpuscular Hemoglobin 27.7 pg (27.0-34.0); Mean Corpuscular Volume 82.9 fL (80.0-100.0); Mean Platelet Volume 8.4 fL (7.0-11.0); Mono # (Auto) 0.9 th/mm3 (0.0-0.9); Mono % (Auto) 8.3 % (0.0-8.0); Neut # (Auto) 5.7 th/mm3 (1.8-7.7); Neut % (Auto) 50.6 % (16.0-70.0); Platelet Count 343 th/mm3 (150-450); Red Blood Count 4.03 mil/mm3 (4.00-5.30); Red Cell Distribution Width 14.5 % (11.6-17.2); White Blood Count 11.2 th/mm3 (4.0-11.0)
[2018-07-12 05:42] LABS: Activated Partial Thrombo Time 31.7 sec (24.3-30.1); Prothrombin Time 10.3 sec (9.8-11.6)
[2018-07-12 05:56] LABS: Anion Gap 7 meq/L (5-15); Blood Urea Nitrogen 11 mg/dL (7-18); Calcium 8.5 mg/dL (8.5-10.1); Carbon Dioxide 25.6 meq/L (21.0-32.0); Chloride 108 meq/L (98-107); Glomerular Filtration Rate Greater Than 89 mL/min (>89); Glucose,Random 83 mg/dL (74-106); Potassium 3.6 meq/L (3.5-5.1); Sodium 141 meq/L (136-145)
--- NOTE | 2018-07-12 08:04 | P.CONNS ---
History of Present Illness Primary Care Provider: Michael Verduzco Chief Complaint: Brain metastasis History of Present Illness: Ms. Aaron is a 58 y/o female who presented with 3 days history of left upper extremity weakness. MRI of the brain demonstrated a ~1.5 cm right frontal enhancing lesion and two cerebellar lesions concerning for metastatic disease. CT of the chest/abdomen/pelvis revealed a lung mass concerning for lung primary. Review of Systems All other systems reviewed negative except as stated in HPI PMFSH - History History Provided By: Patient - Medical History Medical History: Medical History (Last Updated 07/11/18 @ 09:34 by Marjorie Graham) No significant past medical history Smoker - Surgical History Surgical History: Surgical History (Last Updated 07/11/18 @ 09:34 by Marjorie Graham) Hx of hand surgery - Family History Family History: Family History (Last Updated 07/12/18 @ 00:22 by Ta Nieto MD) Other Cancer Coronary artery disease - Tobacco History Second Hand Smoke Exposure: Yes Tobacco Use In Past 30 Days: Yes Smoking Status: Never smoker Tobacco Type: Cigarettes - Alcohol History How Often Do You Have a Drink Containing Alcohol: Monthly or less - Substance Use History Substance History: No History of Abuse - Travel History Recent Travel in the [place] Within the Last 8 Weeks: No Recent Travel Out of the Country Within the Last 8 Weeks: No - Immunization History Tetanus Immunization: >5 Years Hx Influenza Vaccine This Season: No Medications and Allergies Active Medications: Active Medications Acetaminophen (Tylenol) 650 mg PO Q4H PRN PRN Reason: Temp > 100.4/MASCORRO Last Admin: 07/12/18 04:40 Dose: 650 mg Sodium Chloride (Ns Inj) 1,000 mls @ 100 mls/hr IV.CONT .Q10H KIERSTEN Last Infusion: 07/12/18 01:52 Dose: Infused Lorazepam (Ativan) 0.5 mg PO Q12H PRN PRN Reason: ANXIETY AND/OR INSOMNIA Last Admin: 07/11/18 21:08 Dose: 0.5 mg Ondansetron HCl (Zofran Inj) 4 mg IV.PUSH Q6H PRN PRN Reason: NAUSEA OR VOMITING Sodium Chloride (Ns Flush) 2 ml IV.FLUSH PRN PRN PRN Reason: FLUSH AFTER USING IV ACCESS Last Admin: 07/11/18 14:08 Dose: 2 ml Allergies Allergy/AdvReac Type Severity Reaction Status Date / Time No Known Allergies Allergy Unverified 07/11/18 09:28 Home Medications Medication Instructions Recorded Confirmed Type No Known Home Medications 07/11/18 07/11/18 History Exam Vital signs: Vital Signs 07/11/18 09:10 07/11/18 09:32 07/11/18 09:45 Temperature 97.7 F 97.8 F Pulse Rate 74 60 65 Respiratory Rate 16 16 Blood Pressure 135/64 138/62 Pulse Oximetry 97 99 98 07/11/18 10:50 07/11/18 12:35 07/11/18 12:37 Temperature 97.8 F 97.9 F 97.8 F Pulse Rate 61 67 67 Respiratory Rate 16 16 16 Blood Pressure 143/60 H 124/77 124/77 Pulse Oximetry 98 98 98 07/11/18 14:22 07/11/18 15:01 07/11/18 16:00 Temperature 97.8 F 98.0 F 97.4 F L Pulse Rate 64 56 L 54 L Respiratory Rate 16 18 18 Blood Pressure 125/69 124/60 109/55 L Pulse Oximetry 98 97 07/11/18 20:00 07/12/18 07:24 07/12/18 07:25 Temperature 98 F 98.1 F Pulse Rate 59 L 56 L Respiratory Rate 18 16 18 Blood Pressure 128/56 L 101/50 L Pulse Oximetry 96 97 Intake & Output 07/11/18 07/12/18 07/12/18 18:59 06:59 18:59 Intake Total 480 / 480 1000 / 1000 Balance 480 / 480 1000 / 1000 Weight 63.503 kg 63.503 kg Intake: IV 1000 / 1000 NS Inj 1,000 ML @ 100 mls/hr IV 1000 / 1000 .CONT .Q10H KIERSTEN Rx#:[id number] Oral 480 / 480 Other: # Voids 4 2 Weight On Admission 63.503 kg Narrative: Opens eyes spontaneously Alert and oriented x3 Follows commands x4 Left upper extremity 1-2/5 strength throughout muscle groups Otherwise, 5/5 strength throughout Sensation intact Results - Laboratory Findings CBC and BMP: 07/12/18 03:28 07/12/18 03:28 Abnormal lab findings: Abnormal Labs 07/11/18 07/11/18 07/11/18 09:50 09:50 10:00 WBC 13.0 H Hgb 11.5 L Hct [place] % (Auto) Eos % (Auto) 16.1 H Eos # (Auto) 2.1 H APTT Chloride 109 H Calcium 8.2 L Alkaline Phosphatase 143 H Troponin I Less than 0.02 L Albumin 3.1 L Urine Occult Blood Moderate H 07/12/18 07/12/18 07/12/18 03:28 03:28 03:28 WBC 11.2 H Hgb 11.1 L Hct 33.4 L [place] % (Auto) 8.3 H Eos % (Auto) 17.8 H Eos # (Auto) 2.0 H APTT 31.7 H Chloride 108 H Calcium Alkaline Phosphatase Troponin I Albumin Urine Occult Blood Assessment and Plan - Plan 58 y/o female with multiple enhancing lesions in her brain concerning for brain metastases. Lung lesion evident on CT chest. - No neurosurgical intervention indicated. - Recommend biopsy of lung mass to establish diagnosis. - Recommend radiation oncology consultation for stereotactic radiosurgery for three brain metastases. - Dexamethasone 4 mg q6h for cerebral edema - Keppra 500 mg PO BID for seizure prophylaxis.
--- NOTE | 2018-07-12 10:19 | P.PNNEU ---
Subjective Subjective Comments: No cp, no dyspnea, no mascorro,, no vision loss; mild left-sided weakness Active Medications: Active Medications Acetaminophen (Tylenol) 650 mg PO Q4H PRN PRN Reason: Temp > 100.4/MASCORRO Last Admin: 07/12/18 04:40 Dose: 650 mg Sodium Chloride (Ns Inj) 1,000 mls @ 100 mls/hr IV.CONT .Q10H KIERSTEN Last Admin: 07/12/18 10:11 Dose: 100 mls/hr Lorazepam (Ativan) 0.5 mg PO Q12H PRN PRN Reason: ANXIETY AND/OR INSOMNIA Last Admin: 07/11/18 21:08 Dose: 0.5 mg Ondansetron HCl (Zofran Inj) 4 mg IV.PUSH Q6H PRN PRN Reason: NAUSEA OR VOMITING Sodium Chloride (Ns Flush) 2 ml IV.FLUSH PRN PRN PRN Reason: FLUSH AFTER USING IV ACCESS Last Admin: 07/11/18 14:08 Dose: 2 ml Allergies/Adverse Reactions: Allergies Allergy/AdvReac Type Severity Reaction Status Date / Time No Known Allergies Allergy Unverified 07/11/18 09:28 Review of Systems All other systems reviewed negative except as stated in HPI Physical Exam Vital signs: Vital Signs 07/11/18 10:50 07/11/18 12:35 07/11/18 12:37 Temperature 97.8 F 97.9 F 97.8 F Pulse Rate 61 67 67 Respiratory Rate 16 16 16 Blood Pressure 143/60 H 124/77 124/77 Pulse Oximetry 98 98 98 07/11/18 14:22 07/11/18 15:01 07/11/18 16:00 Temperature 97.8 F 98.0 F 97.4 F L Pulse Rate 64 56 L 54 L Respiratory Rate 16 18 18 Blood Pressure 125/69 124/60 109/55 L Pulse Oximetry 98 97 07/11/18 20:00 07/12/18 07:24 07/12/18 07:25 Temperature 98 F 98.1 F Pulse Rate 59 L 56 L Respiratory Rate 18 16 18 Blood Pressure 128/56 L 101/50 L Pulse Oximetry 96 97 Intake & Output 07/11/18 07/12/18 07/12/18 18:59 06:59 18:59 Intake Total 480 / 480 1000 / 1000 Balance 480 / 480 1000 / 1000 Weight 63.503 kg 63.503 kg Intake: IV 1000 / 1000 NS Inj 1,000 ML @ 100 mls/hr IV 1000 / 1000 .CONT .Q10H KIERSTEN Rx#:[id number] Oral 480 / 480 Other: # Voids 4 2 Weight On Admission 63.503 kg Narrative: GENERAL: in NAD, SKIN: Warm and dry. HEAD: Atraumatic. Normocephalic. EYES: Pupils equal and round. No scleral icterus. ENT: No nasal bleeding or discharge. Mucous membranes pink and moist. NECK: Trachea midline. No JVD. CARDIOVASCULAR: Regular rate and rhythm. RESPIRATORY: No accessory muscle use. GASTROINTESTINAL: Abdomen soft, non-tender, nondistended. MUSCULOSKELETAL: Extremities without clubbing, cyanosis, or edema. No obvious deformities. NEUROLOGICAL: Awake and alert. No aphasia, mildly dysarthric speech, follows, reduced left nasolabial fold, mild left hemiparesis 3-4 out of 5, left hemisensory brisk reflex on the left gait not assessed secondary to fall risk PSYCHIATRIC: Appropriate mood and affect; insight and judgment normal. - Constitutional no acute distress - Routine HEENT Exam Head: Present: normocephalic Objective Laboratory Results - last 24 hr 07/11/18 07/11/18 07/11/18 09:50 09:50 10:00 WBC 13.0 H RBC 4.20 Hgb 11.5 L Hct 35.1 MCV 83.5 MCH 27.4 MCHC 32.8 RDW 14.3 Plt Count 369 MPV 8.4 Neut % (Auto) 58.5 Lymph % (Auto) 18.0 [place] % (Auto) 6.2 Eos % (Auto) 16.1 H Baso % (Auto) 1.2 Neut # (Auto) 7.6 Lymph # (Auto) 2.3 [place] # (Auto) 0.8 Eos # (Auto) 2.1 H Baso # (Auto) 0.2 WBC Differential . Differential Comment Auto diff final PT INR APTT Sodium 141 Potassium 4.1 Chloride 109 H Carbon Dioxide 26.3 Anion Gap 6 BUN 9 Creatinine 0.60 Estimated GFR Greater than 89 POC Glucose Random Glucose 83 Calcium 8.2 L Total Bilirubin 0.3 AST 35 ALT 53 Alkaline Phosphatase 143 H Troponin I Less than 0.02 L Total Protein 7.1 Albumin 3.1 L Urine Color Straw Urine Clarity Clear Urine pH 5.0 Ur Specific [place] 1.004 Urine Protein Negative Urine Glucose (UA) Negative Urine Ketones Negative Urine Occult Blood Moderate H Urine Nitrate Negative Urine Bilirubin Negative Urine Urobilinogen Less than 2 Ur Leukocyte Esterase Negative Urine RBC 2 Urine WBC 1 Ur Squamous Epith Cells 1 Micro UA Comment Culture not ind Ur Microscopic Review Not Reportable Urine Culture Comments Culture not ind 07/11/18 07/12/18 07/12/18 16:43 03:28 03:28 WBC 11.2 H RBC 4.03 Hgb 11.1 L Hct 33.4 L MCV 82.9 MCH 27.7 MCHC 33.4 RDW 14.5 Plt Count 343 MPV 8.4 Neut % (Auto) 50.6 Lymph % (Auto) 23.2 [place] % (Auto) 8.3 H Eos % (Auto) 17.8 H Baso % (Auto) 0.1 Neut # (Auto) 5.7 Lymph # (Auto) 2.6 [place] # (Auto) 0.9 Eos # (Auto) 2.0 H Baso # (Auto) 0.0 WBC Differential . Differential Comment Auto diff final PT 10.3 INR 1.0 APTT 31.7 H Sodium Potassium Chloride Carbon Dioxide Anion Gap BUN Creatinine Estimated GFR POC Glucose 105 Random Glucose Calcium Total Bilirubin AST ALT Alkaline Phosphatase Troponin I Total Protein Albumin Urine Color Urine Clarity Urine pH Ur Specific [place] Urine Protein Urine Glucose (UA) Urine Ketones Urine Occult Blood Urine Nitrate Urine Bilirubin Urine Urobilinogen Ur Leukocyte Esterase Urine RBC Urine WBC Ur Squamous Epith Cells Micro UA Comment Ur Microscopic Review Urine Culture Comments 07/12/18 03:28 WBC RBC Hgb Hct MCV MCH MCHC RDW Plt Count MPV Neut % (Auto) Lymph % (Auto) [place] % (Auto) Eos % (Auto) Baso % (Auto) Neut # (Auto) Lymph # (Auto) [place] # (Auto) Eos # (Auto) Baso # (Auto) WBC Differential Differential Comment PT INR APTT Sodium 141 Potassium 3.6 Chloride 108 H Carbon Dioxide 25.6 Anion Gap 7 BUN 11 Creatinine 0.50 Estimated GFR Greater than 89 POC Glucose Random Glucose 83 Calcium 8.5 Total Bilirubin AST ALT Alkaline Phosphatase Troponin I Total Protein Albumin Urine Color Urine Clarity Urine pH Ur Specific [place] Urine Protein Urine Glucose (UA) Urine Ketones Urine Occult Blood Urine Nitrate Urine Bilirubin Urine Urobilinogen Ur Leukocyte Esterase Urine RBC Urine WBC Ur Squamous Epith Cells Micro UA Comment Ur Microscopic Review Urine Culture Comments Review/Management - Diagnosis (1) Brain metastasis Code(s): C79.31 - Secondary malignant neoplasm of brain Status: Acute Current Visit: Yes (2) Tobacco use Code(s): Z72.0 - Tobacco use Status: Acute Current Visit: Yes (3) Lung cancer metastatic to brain Code(s): C34.90 - Malignant neoplasm of unspecified part of unspecified bronchus or lung; C79.31 - Secondary malignant neoplasm of brain Status: Acute Current Visit: Yes - Review/Management Plan: MRI brain findings suggesting vasogenic edema not ischemic stroke. Suspicious for mass lesion with her history of tobacco use and lesion occurring in 2 different brain regions metastatic disease is high on the differential possibly from lung cancer. Chest x-ray suspicious for masses well Recommendations Neuro stable Initiation of dexamethasone per oncology Seen by neurosurgery and oncology Appreciate their input Follow exam
[2018-07-12] MEDS ORDERED: Lidocaine 1%/Epinephrine 1:100,000 Inj 20 ML Vial ONE (10:50)
[2018-07-12] MEDS ORDERED: fentaNYL Citrate Inj 250 MCG/5 ML Ampul ONE (10:55)
--- NOTE | 2018-07-12 12:09 | P.RAD ---
Post CT Procedure Prog Note - Pre Procedure Diagnosis (1) Lung mass - Post Procedure Diagnosis (1) Lung mass - Procedure Information Procedure Date: 07/12/18 Supervising Radiologist: Parag Edouard MD Estimated blood loss (mL): 0 Anesthesia: Local, Conscious Sedation - Plan of Activity Patient to Unit: [facility] Patient condition: Fair Additional Comments: CT guided biopsy of the right lung completed. Full dictated report to follow. See PACS Report for procedural detail/treatment.
--- NOTE | 2018-07-12 13:08 | XR ---
EXAM DATE: 07/12/2018 1:05 PM EDT AGE/SEX: 58 years / Female INDICATIONS: Post right side lung biopsy. CLINICAL DATA: This is the patient's initial encounter. Patient reports that signs and symptoms have been present for 1 day and indicates a pain score of 3/10. MEDICAL/SURGICAL HISTORY: None. None. COMPARISON: [facility] [place], 07/12/2018. . FINDINGS: No pneumothorax following biopsy of right lower lobe lung mass. Biopsied mass is again noted. Cardiom ediastinal contours are within normal limits. Bony thorax is intact. CONCLUSION: 1. No pneumothorax following biopsy of right lower lobe lung mass. Electronically signed by: Pieter Alas MD 07/12/2018 1:07 PM EDT
[2018-07-12] MEDS: levETIRAcetam 500 MG Tablet PO SCH ×2 (14:27→21:40)
--- NOTE | 2018-07-12 15:49 | P.PNONC ---
Subjective Interval history: Afebrile. Patient ambulating from restroom to bed. Patient begins to cry and states "do not give me anymore those pills, I feel so weird" She then describes the pills as the antiseizure medication she had to take prior to her EEG. Patient status post lung biopsy today. Denies any shortness of breath or any pain. Objective Vital Signs/Intake & Output: Vital Signs 07/11/18 16:00 07/11/18 20:00 07/12/18 07:24 Temperature 97.4 F L 98 F Pulse Rate 54 L 59 L Respiratory Rate 18 18 16 Blood Pressure 109/55 L 128/56 L Pulse Oximetry 97 96 07/12/18 07:25 07/12/18 08:00 07/12/18 10:44 Temperature 98.1 F 98.2 F Pulse Rate 56 L 58 L Respiratory Rate 18 13 Blood Pressure 101/50 L 101/55 L Pulse Oximetry 97 96 97 07/12/18 12:00 07/12/18 12:20 07/12/18 12:25 Temperature 98.0 F 97.7 F Pulse Rate 67 68 69 Respiratory Rate 14 18 16 Blood Pressure 110/60 100/54 L 100/54 L Pulse Oximetry 95 95 100 07/12/18 12:40 07/12/18 13:15 07/12/18 14:00 Temperature Pulse Rate 70 80 75 Respiratory Rate 16 20 20 Blood Pressure 94/47 L 110/70 110/70 Pulse Oximetry 91 L 92 L 94 L Intake & Output 07/11/18 07/12/18 07/12/18 18:59 06:59 18:59 Intake Total 480 / 480 1000 / 1000 Balance 480 / 480 1000 / 1000 Weight 63.503 kg 63.503 kg Intake: IV 1000 / 1000 NS Inj 1,000 ML @ 100 mls/hr IV 1000 / 1000 .CONT .Q10H KIERSTEN Rx#:[id number] Oral 480 / 480 Other: # Voids 4 2 Weight On Admission 63.503 kg Result Diagrams: 07/12/18 03:28 07/12/18 03:28 Laboratory Results: Laboratory Results - last 24 hr 07/11/18 07/12/18 07/12/18 16:43 03:28 03:28 WBC 11.2 H RBC 4.03 Hgb 11.1 L Hct 33.4 L MCV 82.9 MCH 27.7 MCHC 33.4 RDW 14.5 Plt Count 343 MPV 8.4 Neut % (Auto) 50.6 Lymph % (Auto) 23.2 [place] % (Auto) 8.3 H Eos % (Auto) 17.8 H Baso % (Auto) 0.1 Neut # (Auto) 5.7 Lymph # (Auto) 2.6 [place] # (Auto) 0.9 Eos # (Auto) 2.0 H Baso # (Auto) 0.0 WBC Differential . Differential Comment Auto diff final PT 10.3 INR 1.0 APTT 31.7 H Sodium Potassium Chloride Carbon Dioxide Anion Gap BUN Creatinine Estimated GFR POC Glucose 105 Random Glucose Calcium 07/12/18 03:28 WBC RBC Hgb Hct MCV MCH MCHC RDW Plt Count MPV Neut % (Auto) Lymph % (Auto) [place] % (Auto) Eos % (Auto) Baso % (Auto) Neut # (Auto) Lymph # (Auto) [place] # (Auto) Eos # (Auto) Baso # (Auto) WBC Differential Differential Comment PT INR APTT Sodium 141 Potassium 3.6 Chloride 108 H Carbon Dioxide 25.6 Anion Gap 7 BUN 11 Creatinine 0.50 Estimated GFR Greater than 89 POC Glucose Random Glucose 83 Calcium 8.5 Imaging Studies: Impressions Chest X-Ray 07/12/18 12:07 CONCLUSION: 1. No pneumothorax following biopsy of right lower lobe lung mass. Medications: Active Medications Generic Name Dose Route Start Last Admin Trade Name Freq PRN Reason Stop Dose Admin Acetaminophen 650 mg 07/11/18 12:35 07/12/18 04:40 Tylenol PO 650 mg Q4H PRN Administration Temp > 100.4/MASCORRO Sodium Chloride 1,000 mls @ 100 mls/hr 07/11/18 14:00 07/12/18 10:11 Ns Inj IV.CONT 100 mls/hr .Q10H KIERSTEN Administration Levetiracetam 500 mg 07/12/18 10:30 07/12/18 14:27 Keppra PO 500 mg BID KIERSTEN Administration Lorazepam 0.5 mg 07/11/18 16:46 07/11/18 21:08 Ativan PO 0.5 mg Q12H PRN Administration ANXIETY AND/OR INSOMNIA Sodium Chloride 2 ml 07/11/18 09:45 07/11/18 14:08 Ns Flush IV.FLUSH 2 ml PRN PRN Administration FLUSH AFTER USING IV ACCESS Objective Remarks: GENERAL: Well-nourished, well-developed female patient, in no acute distress. SKIN: Warm and dry. HEAD: Normocephalic. EYES: No scleral icterus. No injection or drainage. NECK: Supple, trachea midline. CARDIOVASCULAR: Regular rate and rhythm without murmurs. RESPIRATORY: Posterior breath sounds equal bilaterally. Nonlabored. GASTROINTESTINAL: Abdomen soft, non-tender, nondistended. EXTREMITIES: No cyanosis, or edema. MUSCULOSKELETAL: Adequate muscle tone. NEUROLOGICAL: Awake, alert, and oriented x3. Left-sided weakness, arm > leg. PSYCHIATRIC: Appropriate mood and affect; insight and judgment normal. Assessment/Plan - Plan This is a 58-year-old female patient with no major past medical history. She has had increased weakness to the left upper arm and leg for approximately 1 month. Upon hospitalization she was noted to have 3 lesions in the brain consistent with metastasis. She also had a CT scan of the abdomen and pelvis which showed right middle lobe, malignant appearing mass suspicious for bronchogenic malignancy. Plan: 1. Left-sided weakness, with brain lesions suspicious for metastasis. Radiation oncology has been consulted. 2. Right middle lobe mass, status post CT-guided biopsy today. Patient tolerated well, Band-Aid to right chest wall dry/intact. Pathology pending. 3. Await biopsy results. 4. Continue supportive care. - Attending Statement The exam, history, and the medical decision-making described in the above note were completed with the assistance of the mid-level provider. I reviewed and agree with the findings presented. I attest that I had a [id number] encounter with the patient on the same day, and personally performed and documented my assessment and findings in the medical record. Left-sided weakness persist Patient had biopsy of the right lung mass today and has tolerated the procedure well. No complications noted. Pathology report is still pending Consult radiation oncology for SRS Continue Decadron and antiseizure medication We will continue to follow while she is in the hospital
--- NOTE | 2018-07-12 17:00 | CT ---
EXAM DATE: 07/12/2018 2:19 PM EDT AGE/SEX: 58 years / Female INDICATIONS: Right lung mass. CLINICAL DATA: This is the patient's initial encounter. Patient reports that signs and symptoms have been present for 1 day and indicates a pain score of 0/10. MEDICAL/SURGICAL HISTORY: None. None. [place] [facility] [place]. . BIOPSY SITE: Right lung MEDICATION(S): 3mg midazolam (Versed) IV 125mcg fentanyl (Sublimaze) IV DEVICE(S): 18 gauge BARD biopsy needle One core specimen(s) sent to the laboratory for pathologic evaluation. PROCEDURE: CT guided Right lung biopsy Prior to the procedure informed consent was obtained. Any appropriate prior imaging studies were rev iewed. Using automated exposure control and adjustment of the mA and/or kV according to patient size , radiation dose was kept as low as reasonably achievable to obtain optimal diagnostic quality images . DICOM format image data is available electronically for review and comparison. The site was prepped in a sterile fashion. Full sterile technique was used, including cap, mask, lizette rile gloves and gown and a large sterile sheet. Hand hygiene and 2% chlorhexidine and/or betadine/al cohol prep was utilized per protocol for cutaneous antisepsis. The skin and subcutaneous tissues wer e infiltrated with local anesthetic solution. With CT guidance the previously identified middle lobe mass was targeted using a 17-gauge blunt needl e. Position within the mass was confirmed. An 18-gauge core biopsy gun was advanced to the needle. A single biopsy was performed yielding a sizable core. Follow-up CT scan reveals no pneumothorax. Conscious sedation was performed with the prescribed dosages and duration as above in the presence of an independent trained radiology nurse to assist in the monitoring of the patient. EKG and oximetry remained stable throughout the procedure. The patient tolerated the procedure well and there were no complications. The patient was sent to Radiology Outpatient Unit in stable condition. CONCLUSION: 1. Uncomplicated CT guided biopsy. Electronically signed by: Parag Edouard MD 07/12/2018 4:58 PM EDT
--- NOTE | 2018-07-12 18:41 | P.PNIM ---
Subjective Interval history: Mrs. Aaron was afebrile with stable VS overnight. Patient reports that she has had some chest pain when breathing after lung biopsy; she feels that it has recently increased so requests pain medication. Patient also thinks she is slightly more short of breath. Patient otherwise has been doing ok; she has some questions regarding upcoming plans for treatment. Physical Exam Vital signs: Vital Signs 07/11/18 20:00 07/12/18 07:24 07/12/18 07:25 Temperature 98 F 98.1 F Pulse Rate 59 L 56 L Respiratory Rate 18 16 18 Blood Pressure 128/56 L 101/50 L Pulse Oximetry 96 97 07/12/18 08:00 07/12/18 10:44 07/12/18 12:00 Temperature 98.2 F 98.0 F Pulse Rate 58 L 67 Respiratory Rate 13 14 Blood Pressure 101/55 L 110/60 Pulse Oximetry 96 97 95 07/12/18 12:20 07/12/18 12:25 07/12/18 12:40 Temperature 97.7 F Pulse Rate 68 69 70 Respiratory Rate 18 16 16 Blood Pressure 100/54 L 100/54 L 94/47 L Pulse Oximetry 95 100 91 L 07/12/18 13:15 07/12/18 14:00 07/12/18 16:00 Temperature 97.6 F Pulse Rate 80 75 70 Respiratory Rate 20 20 16 Blood Pressure 110/70 110/70 118/58 L Pulse Oximetry 92 L 94 L 94 L Intake & Output 07/11/18 07/12/18 07/12/18 18:59 06:59 18:59 Intake Total 480 / 480 1000 / 1000 980 / 980 Balance 480 / 480 1000 / 1000 980 / 980 Weight 63.503 kg 63.503 kg Intake: IV 1000 / 1000 500 / 500 NS Inj 1,000 ML @ 100 mls/hr IV 1000 / 1000 500 / 500 .CONT .Q10H KIERSTEN Rx#:[id number] Oral 480 / 480 480 / 480 Other: # Voids 4 15 Weight On Admission 63.503 kg Narrative: Gen: No acute distress Skin: No visible lesions. anterior R CT biopsy site covered EYES: EOM I ENT: Mucous membranes pink and moist. CARDIOVASCULAR: Regular rate and rhythm. No murmurs appreciated. RESPIRATORY: Symmetric aeration to auscultation without wheezing; normal rate GASTROINTESTINAL: Abdomen soft, non-tender, nondistended MUSCULOSKELETAL: No Le edema or calf tenderness. Muscle strength as below NEUROLOGICAL: Awake, alert, oriented. No appreciated changes in facial droop on left, slurred speech, or left sided motor function from yesterdays exam Results - Labs CBC & Chem 7: 07/12/18 03:28 07/12/18 03:28 Laboratory Results - last 24 hr 07/12/18 07/12/18 07/12/18 03:28 03:28 03:28 WBC 11.2 H RBC 4.03 Hgb 11.1 L Hct 33.4 L MCV 82.9 MCH 27.7 MCHC 33.4 RDW 14.5 Plt Count 343 MPV 8.4 Neut % (Auto) 50.6 Lymph % (Auto) 23.2 [place] % (Auto) 8.3 H Eos % (Auto) 17.8 H Baso % (Auto) 0.1 Neut # (Auto) 5.7 Lymph # (Auto) 2.6 [place] # (Auto) 0.9 Eos # (Auto) 2.0 H Baso # (Auto) 0.0 WBC Differential . Differential Comment Auto diff final PT 10.3 INR 1.0 APTT 31.7 H Sodium 141 Potassium 3.6 Chloride 108 H Carbon Dioxide 25.6 Anion Gap 7 BUN 11 Creatinine 0.50 Estimated GFR Greater than 89 Random Glucose 83 Calcium 8.5 - Imaging Impressions Lung Biopsy CT 07/12/18 00:00 CONCLUSION: 1. Uncomplicated CT guided biopsy. Chest X-Ray 07/12/18 12:07 CONCLUSION: 1. No pneumothorax following biopsy of right lower lobe lung mass. Assessment and Plan - Plan Mrs. Aaron is a 58 yo F with: Neurologic deficits Impression: Facial droop, left upper extremity and lower extremity weakness. Imaging suggestive of metastatic cancer Head CT- 1. Abnormal right mid sylvian region suspicious for neoplastic process. 2. MRI of the brain is suggested. Head MRI- 1. Metastatic disease as above. Given the appearance most likely site is either lung or breast. MRA head- negative Neck MRA- negative -Neurology consulted -Neurosurgery consulted -Dexamethasone 4mg q6hrs for cerebral edema -Keppra 500mg BID for seizure PPX -PT/ST/OT -DVT PPX Suspicion for malignancy Impression: Concern for metastatic cancer CT Chest- There is a dominant partially necrotic-appearing soft tissue mass in the right middle lobe suspicious for primary bronchogenic malignancy, with a few scattered bilateral tiny noncalcified nodules which are nonspecific and the possibility of metastatic deposits are not excluded. There is right hilar adenopathy characteristic of metastatic disease. CT A/P- 1. Right middle lobe malignant appearing mass suspicious for bronchogenic malignancy. 2. Left adrenal nodule is noted and indeterminate. Metastatic deposit can have this appearance. CXR- 6mm mass in RLL suspicious for neoplastic process with minimal postobstructive changes -Hematology consulted -Radiation oncology consulted -CT lung biopsy performed today; no complications -pathology pending R sided Chest pain/SOB after biopsy -Will repeat CXR this evening - unremarkable; no pneumothorax -Will give PRN [place] 5 for pain Anxiety -PRN Ativan DVT PPX -SCD's currently; s/p biopsy today Code Status: Full Code
--- NOTE | 2018-07-12 18:49 | ECG ---
Date Performed: 07/11/2018 Time Performed: 09:25:55 PTAGE: 58 years EKG: Sinus rhythm WITH OCCASIONAL VENTRICULAR PREMATURE COMPLEXES POSSIBLE RIGHT VENTRICULAR CONDUCTION DELAY SEPTAL M YOCARDIAL INFARCTION ABNORMAL ECG INTERPRETATION BASED ON A DEFAULT AGE OF 41 YEARS NO PREVIOUS TRACING DOCTOR: Julianne Weems Interpretating Date/Time 07/12/2018 18:39:44
--- NOTE | 2018-07-12 20:29 | XR ---
EXAM DATE: 07/12/2018 8:22 PM EDT AGE/SEX: 58 years / Female INDICATIONS: . Painful respirations CLINICAL DATA: This is the patient's subsequent encounter. Patient reports that signs and symptoms h ave been present for 2 days and indicates a pain score of 0/10. MEDICAL/SURGICAL HISTORY: Carcinoma, lung. Patient's left arm limp unable to move on ownLeft ar m paralysis None. [place] [facility] [place] [facility] [place]. . FINDINGS: The right lung tumor medial infrahilar region is similar in size and appearance measuring 5.6 cm in s uperior/inferior extent. Both hemidiaphragms well delineated and there is no blunting of the costophr enic angles. The left lung is clear. The heart is normal in size. No evidence of pneumothorax. CONCLUSION: 1. No acute findings in the lungs. 2. Stable 5.6 cm medial right lung tumor. Electronically signed by: Arsalan Jade MD 07/12/2018 8:27 PM EDT
[2018-07-13] MEDS: Sod Chloride 0.9% Inj 1,000 ML IV.CONT SCH ×2 (05:31→17:42)
--- NOTE | 2018-07-13 06:35 | XR ---
EXAM DATE: 07/13/2018 6:33 AM EDT AGE/SEX: 58 years / Female INDICATIONS: Short of breath, evaluate pulmonary disease CLINICAL DATA: This is the patient's subsequent encounter. Patient reports that signs and symptoms h ave been present for 4 - 6 days and indicates a pain score of 3/10. MEDICAL/SURGICAL HISTORY: Carcinoma, lung. Metastatic disease. left arm weakness, left side we akness, large tumor right lung None. COMPARISON: [facility] [place] 2V AP&LAT, 07/12/2018. . FINDINGS: Single AP view the chest. 5 cm mass in the right perihilar region is again seen. Left lung clear. Car diomediastinal silhouette within normal limits. No evidence of pleural effusion or pneumothorax. CONCLUSION: No significant interval change. 5 cm right perihilar mass again seen. Electronically signed by: Bulmaro Posadas MD 07/13/2018 6:34 AM EDT
--- NOTE | 2018-07-13 08:09 | P.CON ---
History of Present Illness Service: Radiation oncology Consult date: 07/13/18 Requesting Physician: Juanis Angela Reason for Consult: Metastatic disease to the brain Primary Care Provider: Michael Verduzco Chief Complaint: Brain metastasis History of Present Illness: 58-year-old white female longtime smoker that states that she was doing fine until Thursday of last week when she experienced weakness of the left upper extremity and perhaps a weakness of the left lower extremity although today the patient states that she has no issues with her left lower extremity. As a result of this as she came into the hospital was evaluated and noted to have brain disease as well as a mass within the right middle lung in the right hilar region. Biopsy was taken down tomorrow and results are pending. Dr. Angela has requested a consult for evaluation regarding possible radiotherapy treatment options for salvage. Questionable disease within the adrenal gland as well as bilateral lungs. Review of Systems Constitutional: Reports fatigue, Reports weakness Eyes: Denies blind spots, Denies blurry vision, Denies bulging eyes, Denies change in vision, Denies double vision, Denies discharge, Denies dry eyes, Denies floaters, Denies irritation, Denies itchy eyes, Denies loss of vision, Denies pain, Denies requires corrective lenses, Denies sensitivity to light, Denies other Ears, Nose, Mouth, and Throat: Denies abnormal hearing, Denies bleeding gums, Denies bad breath, Denies change in voice, Denies dental pain, Denies difficulty swallowing, Denies dizziness, Denies dry mouth, Denies ear discharge , Denies ear pain, Denies facial pain, Denies headache(s), Denies hearing loss, Denies hoarseness, Denies lip swelling, Denies nosebleed, Denies mouth lesions, Denies mouth pain, Denies nasal congestion, Denies nasal discharge, Denies nasal obstruction, Denies nasal trauma, Denies neck lump, Denies neck pain, Denies nose pain, Denies pain with swallowing, Denies poor balance, Denies post nasal drip, Denies ringing in the ears, Denies sinus pain, Denies sinus pressure , Denies sore throat, Denies throat swelling, Denies tongue swelling, Denies other Cardiovascular: Denies chest pain, Denies chest pain at rest, Denies chest pain with activity, Denies excessive sweating, Denies fainting, Denies fast heart rate, Denies foot swelling, Denies generalized swelling, Denies irregular heart rhythm, Denies leg pain with activity, Denies leg sores, Denies leg swelling, Denies lightheadedness, Denies radiating jaw, neck or arm pain, Denies rapid, pounding, or irregular heartbeat, Denies shortness of breath, Denies shortness of breath with activity, Denies shortness of breath when lying down, Denies shortness of breath causing sudden awakening, Denies slow heart rate, Denies other Respiratory: Denies change in phlegm color, Denies chest congestion, Denies cough, Denies coughing up blood, Denies excessive phlegm production, Denies pain on inspiration, Denies pain with cough, Denies shortness of breath, Denies shortness of breath with activity, Denies snoring, Denies stridor, Denies wheezing, Denies other Gastrointestinal: Denies abdominal pain, Denies belching, Denies black, tarry stools, Denies bloating, Denies bright, red blood in stools, Denies change in bowel habits, Denies constant urge to pass stool, Denies change in stools, Denies coffee ground vomit, Denies constipation, Denies cramping, Denies difficulty swallowing, Denies excessive passing of gas, Denies feeling full early, Denies heartburn, Denies incontinent of stools, Denies loose stools, Denies nausea, Denies pain with swallowing, Denies vomiting, Denies vomiting blood, Denies other Genitourinary: Denies abnormal periods, Denies abnormal vaginal bleeding, Denies absent period, Denies bleeding between periods, Denies blood in urine, Denies difficulty starting urination, Denies difficulty urinating, Denies dribbling after urination, Denies frequent nighttime urination, Denies genital itching, Denies genital lesions, Denies heavy periods, Denies hot flashes, Denies light periods, Denies nipple discharge, Denies painful intercourse, Denies painful periods, Denies painful urination, Denies pelvic pain, Denies prolapse symptoms, Denies sexual problems, Denies side pain, Denies urinary incontinence, Denies urinary urgency, Denies vaginal discharge, Denies vaginal dryness, Denies vaginal odor, Denies vaginal itching, Denies other Musculoskeletal: Reports muscle weakness, Reports other Skin/Breast: Denies acne, Denies bleeding lesions, Denies boil, Denies breast swelling, Denies breast skin changes, Denies breast pain, Denies breast lump, Denies change in breast shape, Denies change in hair, Denies change in skin color, Denies changing lesions, Denies dry skin, Denies excessive hair growth, Denies hair loss, Denies itching, Denies lesions, Denies nail changes, Denies new lesions, Denies nipple discharge, Denies non-healing lesions, Denies redness , Denies sensitivity to light, Denies rash, Denies skin pain, Denies skin ulcer , Denies sores, Denies stretch dukes, Denies unusual bruising, Denies wounds, Denies yellowing of the skin, Denies other Neurologic: Reports localized weakness, Reports weakness, Reports other Comments: Patient says that she has no use of her left upper extremity Psychiatric: Denies abnormal sleep pattern, Denies anxiety, Denies behavioral changes, Denies change in appetite, Denies change in sex drive, Denies confusion , Denies depression, Denies difficulty concentrating, Denies hearing things others do not hear, Denies hopelessness, Denies irritability, Denies lack of enjoyment, Denies memory loss, Denies mood swings, Denies panic attacks, Denies paranoia, Denies seeing things others do not see, Denies sensing things others do not sense, Denies tactile hallucinations, Denies thoughts of hurting/killing others, Denies thoughts of hurting/killing yourself, Denies other Hematologic/Lymphatic: Denies easy bleeding, Denies easy bruising, Denies enlarged lymph nodes, Denies other Allergic/Immunologic: Denies GI upset with certain foods, Denies hives, Denies itchy eyes, Denies lip swelling, Denies seasonal runny nose, Denies throat swelling, Denies tongue swelling, Denies wheezing, Denies other PMFSH - History History Provided By: Patient - Medical History Medical History: Medical History (Last Reviewed 07/12/18 @ 09:02 by Caren Lorenz) No significant past medical history Smoker - Surgical History Surgical History: Surgical History (Last Reviewed 07/12/18 @ 09:02 by Caren Lorenz) Hx of hand surgery - Family History Family History: Family History (Last Updated 07/12/18 @ 00:22 by Ta Nieto MD) Other Cancer Coronary artery disease - Tobacco History Second Hand Smoke Exposure: Yes Tobacco Use In Past 30 Days: Yes Smoking Status: Never smoker Tobacco Type: Cigarettes - Alcohol History How Often Do You Have a Drink Containing Alcohol: Monthly or less - Substance Use History Substance History: No History of Abuse - Travel History Recent Travel in the [place] Within the Last 8 Weeks: No Recent Travel Out of the Country Within the Last 8 Weeks: No - Immunization History Tetanus Immunization: >5 Years Hx Influenza Vaccine This Season: No Medications and Allergies Active Medications: Active Medications Acetaminophen (Tylenol) 650 mg PO Q4H PRN PRN Reason: Temp > 100.4/MASCORRO Last Admin: 07/12/18 18:00 Dose: 650 mg Hydrocodone Bitart/Acetaminophen ([place] 5/325) 1 tab PO Q6H PRN PRN Reason: PAIN SCALE 6 TO 10 Last Admin: 07/13/18 03:40 Dose: 1 tab Sodium Chloride (Ns Inj) 1,000 mls @ 100 mls/hr IV.CONT .Q10H KIERSTEN Last Admin: 07/13/18 05:31 Dose: Not Given Levetiracetam (Keppra) 500 mg PO BID [facility] Last Admin: 07/12/18 21:40 Dose: Not Given Lorazepam (Ativan) 0.5 mg PO Q12H PRN PRN Reason: ANXIETY AND/OR INSOMNIA Last Admin: 07/11/18 21:08 Dose: 0.5 mg Ondansetron HCl (Zofran Inj) 4 mg IV.PUSH Q6H PRN PRN Reason: NAUSEA OR VOMITING Sodium Chloride (Ns Flush) 2 ml IV.FLUSH PRN PRN PRN Reason: FLUSH AFTER USING IV ACCESS Last Admin: 07/11/18 14:08 Dose: 2 ml Allergies Allergy/AdvReac Type Severity Reaction Status Date / Time No Known Allergies Allergy Unverified 07/11/18 09:28 Home Medications Medication Instructions Recorded Confirmed Type No Known Home Medications 07/11/18 07/11/18 History Physical Exam Vital signs: Vital Signs 07/12/18 08:00 07/12/18 10:44 07/12/18 12:00 Temperature 98.2 F 98.0 F Pulse Rate 58 L 67 Respiratory Rate 13 14 Blood Pressure 101/55 L 110/60 Pulse Oximetry 96 97 95 07/12/18 12:20 07/12/18 12:25 07/12/18 12:40 Temperature 97.7 F Pulse Rate 68 69 70 Respiratory Rate 18 16 16 Blood Pressure 100/54 L 100/54 L 94/47 L Pulse Oximetry 95 100 91 L 07/12/18 13:15 07/12/18 14:00 07/12/18 16:00 Temperature 97.6 F Pulse Rate 80 75 70 Respiratory Rate 20 20 16 Blood Pressure 110/70 110/70 118/58 L Pulse Oximetry 92 L 94 L 94 L 07/12/18 19:08 07/12/18 20:00 07/13/18 00:00 Temperature 98.4 F 98.3 F Pulse Rate 69 63 Respiratory Rate 18 18 Blood Pressure 119/59 L 109/54 L Pulse Oximetry 98 100 98 07/13/18 04:00 Temperature 98 F Pulse Rate 64 Respiratory Rate 18 Blood Pressure 106/52 L Pulse Oximetry 94 L Intake & Output 07/12/18 07/13/18 07/13/18 18:59 06:59 18:59 Intake Total 980 / 980 Balance 980 / 980 Weight 63.503 kg 61.9 kg Intake: IV 500 / 500 NS Inj 1,000 ML @ 100 mls/hr IV 500 / 500 .CONT .Q10H KIERSTEN Rx#:[id number] Oral 480 / 480 Other: # Voids 15 4 - Constitutional no acute distress, thin, cooperative - Routine HEENT Exam Head: Present: normocephalic, atraumatic Eye: Present: EOMI ENT: Present: mucous membranes moist, nares patent, external ear normal - Routine Neck Exam Present: supple, trachea midline - Routine Respiratory Exam Present: decreased breath sounds, diminished air movement Comments: There is a decreased ventilatory inspiratory effort which is equal and bilateral. Lungs were clear to auscultation. Decreased ventilation is more so on the right mid lung. - Routine Cardiovascular Exam Comments: Heart was regular in rate and rhythm with no murmurs - Routine Abdominal Exam Present: soft Comments: No hepato-or splenomegaly detected - Routine Extremities Exam Comments: No lower extremity edema detected bilaterally. - Routine Skin Exam Present: intact, dry - Routine Neurological Exam Present: alert, oriented X3, motor deficit, vision grossly intact, hearing grossly intact There is more of the deficit of the left upper extremity. Patient unable to move left upper extremity, not able to use her hand, shoulder not movable. - Routine Psychiatric Exam Present: normal affect, normal thought process, cooperative, good insight, good judgment, anxious Assessment and Plan - Assessment (1) Brain metastasis Code(s): C79.31 - Secondary malignant neoplasm of brain Status: Acute - Plan Imaging: MR head w contrast EXAM DATE: 07/11/2018 These reveal metastatic disease. 3 abnormal areas of contrast enhancement are identified, one high in the right centrum semiovale measuring slightly over 1 cm.. 2 are in the right cerebellar hemisphere. Largest in the cerebellar hemisphere measures 1.4 cm. These are associated with [id number] edema. CT of the chest 07/11/2018: CONCLUSION: 1. There is a dominant partially necrotic-appearing soft tissue mass in the right middle lobe suspicious for primary bronchogenic malignancy, with a few scattered bilateral tiny noncalcified nodules which are nonspecific and the possibility of metastatic deposits are not excluded. There is right hilar adenopathy characteristic of metastatic disease. Assessment: 58-year-old white female with the probable diagnosis of metastatic lung carcinoma to the brain. Patient being evaluated for salvage radiotherapy treatment options. Plan: I had extensive discussion with the patient in regards to her condition. I have reviewed the above imaging. I advised the patient of treatment modalities to the brain including whole brain radiotherapy versus radiosurgery. She only has had 3 lesions and possibly localized disease to the lung. In either case even with metastatic disease I think the patient will be better served with radiosurgery to the 3 lesions. I advised the patient of the merits of her therapy as well as the purpose. We discussed side effects and complications. I discussed with the patient the side effects and complications of radiosurgery to the brain to include but not limited to: Weakness and fatigue , decreased blood counts, erythema of the skin, necrosis of the skin, decreased hearing loss of hearing, decreased vision loss of vision, brain necrosis which may require the prolonged use of steroids or surgery, brain damage, brain leukoencephalopathy, changes in short-term and long-term memory, bone damage and fracture, loss of hair which could be permanent. After thorough discussion the patient understood everything that was explained. She wants to proceed forward with the treatment. Once we confirm the diagnosis of lung carcinoma then will proceed forward as planned. Case will be discussed with the tumor board. I would like to obtain pulmonary function tests in case I have to treat her lung lesion and an order has been placed. Patient will benefit from a PET scan once she is discharged and an order has been placed. Patient is to return for simulation treatment planning. Patient advised if I can be of any further assistance or to please let me know otherwise we will proceed as above. Dr. Angela, thank you very much for the referral of this patient and allow me to participate in her care. Should you have any further questions or concerns please do not hesitate to contact me.
--- NOTE | 2018-07-13 08:17 | P.PNNEU ---
Subjective Active Medications: Active Medications Acetaminophen (Tylenol) 650 mg PO Q4H PRN PRN Reason: Temp > 100.4/MASCORRO Last Admin: 07/12/18 18:00 Dose: 650 mg Hydrocodone Bitart/Acetaminophen ([place] 5/325) 1 tab PO Q6H PRN PRN Reason: PAIN SCALE 6 TO 10 Last Admin: 07/13/18 03:40 Dose: 1 tab Sodium Chloride (Ns Inj) 1,000 mls @ 100 mls/hr IV.CONT .Q10H [facility] Last Admin: 07/13/18 05:31 Dose: Not Given Levetiracetam (Keppra) 500 mg PO BID [facility] Last Admin: 07/12/18 21:40 Dose: Not Given Lorazepam (Ativan) 0.5 mg PO Q12H PRN PRN Reason: ANXIETY AND/OR INSOMNIA Last Admin: 07/11/18 21:08 Dose: 0.5 mg Ondansetron HCl (Zofran Inj) 4 mg IV.PUSH Q6H PRN PRN Reason: NAUSEA OR VOMITING Sodium Chloride (Ns Flush) 2 ml IV.FLUSH PRN PRN PRN Reason: FLUSH AFTER USING IV ACCESS Last Admin: 07/11/18 14:08 Dose: 2 ml Allergies/Adverse Reactions: Allergies Allergy/AdvReac Type Severity Reaction Status Date / Time No Known Allergies Allergy Unverified 07/11/18 09:28 Physical Exam Vital signs: Vital Signs 07/12/18 10:44 07/12/18 12:00 07/12/18 12:20 Temperature 98.0 F 97.7 F Pulse Rate 67 68 Respiratory Rate 14 18 Blood Pressure 110/60 100/54 L Pulse Oximetry 97 95 95 07/12/18 12:25 07/12/18 12:40 07/12/18 13:15 Temperature Pulse Rate 69 70 80 Respiratory Rate 16 16 20 Blood Pressure 100/54 L 94/47 L 110/70 Pulse Oximetry 100 91 L 92 L 07/12/18 14:00 07/12/18 16:00 07/12/18 19:08 Temperature 97.6 F Pulse Rate 75 70 Respiratory Rate 20 16 Blood Pressure 110/70 118/58 L Pulse Oximetry 94 L 94 L 98 07/12/18 20:00 07/13/18 00:00 09/25/18 04:00 Temperature 98.4 F 98.3 F 98 F Pulse Rate 69 63 64 Respiratory Rate 18 18 18 Blood Pressure 119/59 L 109/54 L 106/52 L Pulse Oximetry 100 98 94 L Intake & Output 07/12/18 07/13/18 07/13/18 18:59 06:59 18:59 Intake Total 980 / 980 Balance 980 / 980 Weight 63.503 kg 61.9 kg Intake: IV 500 / 500 NS Inj 1,000 ML @ 100 mls/hr IV 500 / 500 .CONT .Q10H KIERSTEN Rx#:[id number] Oral 480 / 480 Other: # Voids 15 4 Review/Management - Diagnosis (1) Brain metastasis Code(s): C79.31 - Secondary malignant neoplasm of brain Status: Acute Current Visit: Yes (2) Tobacco use Code(s): Z72.0 - Tobacco use Status: Acute Current Visit: Yes (3) Lung cancer metastatic to brain Code(s): C34.90 - Malignant neoplasm of unspecified part of unspecified bronchus or lung; C79.31 - Secondary malignant neoplasm of brain Status: Acute Current Visit: Yes - Review/Management Plan: Seen by oncology, neurosurgery, radiation oncology Recommendations NIMO Mosqueda poor tolerance We will change to Vimpat Biopsy pending Follow exam
[2018-07-13 09:07] LABS: Baso # (Auto) 0.1 th/mm3 (0.0-0.2); Eos # (Auto) 1.7 th/mm3 (0.0-0.4); Eos % (Auto) 14.7 % (0.0-4.0); Hematocrit 32.6 % (35.0-46.0); Lymph # (Auto) 2.4 th/mm3 (1.0-4.8); Lymph % (Auto) 21.2 % (9.0-44.0); Mean Corpuscular HGB Conc 33.7 % (32.0-36.0); Mean Corpuscular Hemoglobin 27.7 pg (27.0-34.0); Mean Corpuscular Volume 82.4 fL (80.0-100.0); Mean Platelet Volume 8.3 fL (7.0-11.0); Mono # (Auto) 1.1 th/mm3 (0.0-0.9); Mono % (Auto) 9.6 % (0.0-8.0); Neut # (Auto) 6.2 th/mm3 (1.8-7.7); Neut % (Auto) 53.5 % (16.0-70.0); Platelet Count 341 th/mm3 (150-450); Red Blood Count 3.96 mil/mm3 (4.00-5.30); Red Cell Distribution Width 14.6 % (11.6-17.2); White Blood Count 11.5 th/mm3 (4.0-11.0)
[2018-07-13 09:33] LABS: Anion Gap 8 meq/L (5-15); Blood Urea Nitrogen 8 mg/dL (7-18); Calcium 8.4 mg/dL (8.5-10.1); Carbon Dioxide 23.8 meq/L (21.0-32.0); Chloride 108 meq/L (98-107); Glomerular Filtration Rate Greater Than 89 mL/min (>89); Glucose,Random 90 mg/dL (74-106); Potassium 3.8 meq/L (3.5-5.1); Sodium 140 meq/L (136-145)
--- NOTE | 2018-07-13 11:59 | P.PNONC ---
Subjective Interval history: Patient walking around her room, "cleaning to keep busy", gait is with a limp. She denies any shortness of breath, stating that her breathing today is much better. No other complaints at this time. She reports working with physical therapy. Remains with left arm weakness. Pathology pending. Objective Vital Signs/Intake & Output: Vital Signs 07/12/18 12:00 07/12/18 12:20 07/12/18 12:25 Temperature 98.0 F 97.7 F Pulse Rate 67 68 69 Respiratory Rate 14 18 16 Blood Pressure 110/60 100/54 L 100/54 L Pulse Oximetry 95 95 100 07/12/18 12:40 07/12/18 13:15 07/12/18 14:00 Temperature Pulse Rate 70 80 75 Respiratory Rate 16 20 20 Blood Pressure 94/47 L 110/70 110/70 Pulse Oximetry 91 L 92 L 94 L 07/12/18 16:00 07/12/18 19:08 07/12/18 20:00 Temperature 97.6 F 98.4 F Pulse Rate 70 69 Respiratory Rate 16 18 Blood Pressure 118/58 L 119/59 L Pulse Oximetry 94 L 98 100 07/13/18 00:00 07/13/18 04:00 07/13/18 08:00 Temperature 98.3 F 98 F 97.5 F L Pulse Rate 63 64 62 Respiratory Rate 18 18 20 Blood Pressure 109/54 L 106/52 L 94/51 L Pulse Oximetry 98 94 L 96 Intake & Output 07/12/18 07/13/18 07/13/18 18:59 06:59 18:59 Intake Total 980 / 980 Balance 980 / 980 Weight 63.503 kg 61.9 kg Intake: IV 500 / 500 NS Inj 1,000 ML @ 100 mls/hr IV 500 / 500 .CONT .Q10H KIERSTEN Rx#:[id number] Oral 480 / 480 Other: # Voids 15 4 Result Diagrams: 07/13/18 07:10 07/13/18 07:10 Laboratory Results: Laboratory Results - last 24 hr 07/13/18 07/13/18 07:10 07:10 WBC 11.5 H RBC 3.96 L Hgb 11.0 L Hct 32.6 L MCV 82.4 MCH 27.7 MCHC 33.7 RDW 14.6 Plt Count 341 MPV 8.3 Neut % (Auto) 53.5 Lymph % (Auto) 21.2 [place]urry % (Auto) 9.6 H Eos % (Auto) 14.7 H Baso % (Auto) 1.0 Neut # (Auto) 6.2 Lymph # (Auto) 2.4 [place] # (Auto) 1.1 H Eos # (Auto) 1.7 H Baso # (Auto) 0.1 WBC Differential . Differential Comment Auto diff final Sodium 140 Potassium 3.8 Chloride 108 H Carbon Dioxide 23.8 Anion Gap 8 BUN 8 Creatinine 0.57 Estimated GFR Greater than 89 Random Glucose 90 Calcium 8.4 L Imaging Studies: Impressions Chest X-Ray 07/12/18 00:00 CONCLUSION: 1. No acute findings in the lungs. 2. Stable 5.6 cm medial right lung tumor. Lung Biopsy CT 07/12/18 00:00 CONCLUSION: 1. Uncomplicated CT guided biopsy. Chest X-Ray 07/12/18 12:07 CONCLUSION: 1. No pneumothorax following biopsy of right lower lobe lung mass. Chest X-Ray 07/13/18 07:00 CONCLUSION: No significant interval change. 5 cm right perihilar mass again seen. Medications: Active Medications Generic Name Dose Route Start Last Admin Trade Name Freq PRN Reason Stop Dose Admin Acetaminophen 650 mg 07/11/18 12:35 07/12/18 18:00 Tylenol PO 650 mg Q4H PRN Administration Temp > 100.4/MASCORRO Hydrocodone Bitart/Acetaminophen 1 tab 07/12/18 18:40 07/13/18 09:29 [place] 5/325 PO 1 tab Q6H PRN Administration PAIN SCALE 6 TO 10 Sodium Chloride 1,000 mls @ 100 mls/hr 07/11/18 14:00 07/13/18 05:31 Ns Inj IV.CONT Not Given .Q10H KIERSTEN Lorazepam 0.5 mg 07/11/18 16:46 07/11/18 21:08 Ativan PO 0.5 mg Q12H PRN Administration ANXIETY AND/OR INSOMNIA Sodium Chloride 2 ml 07/11/18 09:45 07/11/18 14:08 Ns Flush IV.FLUSH 2 ml PRN PRN Administration FLUSH AFTER USING IV ACCESS Objective Remarks: GENERAL: Chronically ill appearing middle aged female patient, in no acute distress. SKIN: Warm and dry. HEAD: Normocephalic. EYES: No scleral icterus. No injection or drainage. NECK: Supple, trachea midline. CARDIOVASCULAR: Regular rate and rhythm without murmurs. RESPIRATORY: Posterior breath sounds clear, equal bilaterally. Nonlabored. GASTROINTESTINAL: Abdomen soft, non-tender, nondistended. EXTREMITIES: No cyanosis, or edema. MUSCULOSKELETAL: Adequate muscle tone. Decreased tone LUE. NEUROLOGICAL: Awake, alert, and oriented x3. Left-sided weakness, arm > leg. PSYCHIATRIC: Appropriate mood and affect; insight and judgment normal. Assessment/Plan - Plan This is a 58-year-old female patient with no major past medical history. She has had increased weakness to the left upper arm and leg for approximately 1 month. Upon hospitalization she was noted to have 3 lesions in the brain consistent with metastasis. She also had a CT scan of the abdomen and pelvis which showed right middle lobe, malignant appearing mass suspicious for bronchogenic malignancy. Plan: 1. Left-sided weakness, with brain lesions suspicious for metastasis. Radiation oncology consulted today, recommendations for radiofrequency surgery after pathology is confirmed. 2. Right middle lobe mass, status post CT-guided biopsy on 07/12/18. Patient tolerated well, Band-Aid to right chest wall dry/intact. Pathology pending. 3. Await biopsy results. 4. Continue supportive care. - Attending Statement The exam, history, and the medical decision-making described in the above note were completed with the assistance of the mid-level provider. I reviewed and agree with the findings presented. I attest that I had a [id number] encounter with the patient on the same day, and personally performed and documented my assessment and findings in the medical record. no new c/o Path is pending XRT note reviewed.
--- NOTE | 2018-07-13 15:32 | P.PN ---
Subjective Interval history: Patient seen sitting up in bed. Tells me that she is feeling okay with no new pain or concerns. She is trying to get her left arm stronger and has been walking around her room. Tells me her walking is back to her baseline. Physical Exam Vital signs: Vital Signs 07/12/18 16:00 07/12/18 19:08 07/12/18 20:00 Temperature 97.6 F 98.4 F Pulse Rate 70 69 Respiratory Rate 16 18 Blood Pressure 118/58 L 119/59 L Pulse Oximetry 94 L 98 100 07/13/18 00:00 07/13/18 04:00 07/13/18 08:00 Temperature 98.3 F 98 F 97.5 F L Pulse Rate 63 64 62 Respiratory Rate 18 18 20 Blood Pressure 109/54 L 106/52 L 94/51 L Pulse Oximetry 98 94 L 96 07/13/18 12:00 Temperature 98 F Pulse Rate 60 Respiratory Rate 20 Blood Pressure 100/60 Pulse Oximetry 97 Intake & Output 07/12/18 07/13/18 07/13/18 18:59 06:59 18:59 Intake Total 980 / 980 Balance 980 / 980 Weight 63.503 kg 61.9 kg Intake: IV 500 / 500 NS Inj 1,000 ML @ 100 mls/hr IV 500 / 500 .CONT .Q10H KIERSTEN Rx#:[id number] Oral 480 / 480 Other: # Voids 15 4 Narrative: GENERAL: Well-nourished, well-developed adult female in no obvious distress. SKIN: Warm and dry. HEAD: Atraumatic. Normocephalic. CARDIOVASCULAR: Regular rate and rhythm. RESPIRATORY: No accessory muscle use. Clear to auscultation. Breath sounds equal bilaterally; diminished at bases. GASTROINTESTINAL: Abdomen soft, non-tender, non-distended. Positive bowel sounds. MUSCULOSKELETAL: Extremities without clubbing, cyanosis, or edema. No obvious deformities. Left arm very weak. NEUROLOGICAL: Awake and alert. No obvious cranial nerve deficits. Motor grossly within normal limits. Normal speech. PSYCHIATRIC: Appropriate mood and affect; insight and judgment good. Results - Labs CBC & Chem 7: 07/13/18 07:10 07/13/18 07:10 Laboratory Results - last 24 hr 07/13/18 07/13/18 07:10 07:10 WBC 11.5 H RBC 3.96 L Hgb 11.0 L Hct 32.6 L MCV 82.4 MCH 27.7 MCHC 33.7 RDW 14.6 Plt Count 341 MPV 8.3 Neut % (Auto) 53.5 Lymph % (Auto) 21.2 Weber % (Auto) 9.6 H Eos % (Auto) 14.7 H Baso % (Auto) 1.0 Neut # (Auto) 6.2 Lymph # (Auto) 2.4 Weber # (Auto) 1.1 H Eos # (Auto) 1.7 H Baso # (Auto) 0.1 WBC Differential . Differential Comment Auto diff final Sodium 140 Potassium 3.8 Chloride 108 H Carbon Dioxide 23.8 Anion Gap 8 BUN 8 Creatinine 0.57 Estimated GFR Greater than 89 Random Glucose 90 Calcium 8.4 L - Imaging Impressions Chest X-Ray 07/12/18 00:00 CONCLUSION: 1. No acute findings in the lungs. 2. Stable 5.6 cm medial right lung tumor. Lung Biopsy CT 07/12/18 00:00 CONCLUSION: 1. Uncomplicated CT guided biopsy. Chest X-Ray 07/13/18 07:00 CONCLUSION: No significant interval change. 5 cm right perihilar mass again seen. Assessment and Plan - Plan Mrs. Aaron is a 58 yo F with: Neurologic deficits Impression: Facial droop, left upper extremity and lower extremity weakness. Imaging suggestive of metastatic cancer Head CT- 1. Abnormal right mid sylvian region suspicious for neoplastic process. Head MRI- 1. Metastatic disease as above. Given the appearance most likely site is either lung or breast. MRA head- negative Neck MRA- negative -Neurology consulted -Neurosurgery consulted -Dexamethasone 4mg q6hrs for cerebral edema -Keppra 500mg BID for seizure PPX; keppra stopped and changed to vimpat 07/13 -PT/ST/OT -DVT PPX Suspicion for malignancy Impression: Concern for metastatic cancer CT Chest- There is a dominant partially necrotic-appearing soft tissue mass in the right middle lobe suspicious for primary bronchogenic malignancy, with a few scattered bilateral tiny noncalcified nodules which are nonspecific and the possibility of metastatic deposits are not excluded. There is right hilar adenopathy characteristic of metastatic disease. CT A/P- 1. Right middle lobe malignant appearing mass suspicious for bronchogenic malignancy. 2. Left adrenal nodule is noted and indeterminate. Metastatic deposit can have this appearance. CXR- 6mm mass in RLL suspicious for neoplastic process with minimal postobstructive changes -Hematology consulted -Radiation oncology consulted; recommendation for radiofrequency surgery after pathology is confirmed. -CT lung biopsy performed today; no complications -pathology pending R sided Chest pain/SOB after biopsy -Will repeat CXR this evening - unremarkable; no pneumothorax -Will give PRN [place] 5 for pain Anxiety -PRN Ativan DVT PPX -SCD's currently; s/p biopsy today Code Status: Full Code
[2018-07-13] MEDS: Lacosamide 50 MG Tablet PO SCH ×2 (18:28→20:47)
[2018-07-14] MEDS: Sod Chloride 0.9% Inj 1,000 ML IV.CONT SCH ×2 (03:43→15:05)
[2018-07-14] MEDS: Lacosamide 50 MG Tablet PO SCH ×2 (09:11→20:21)
[2018-07-14] MEDS ORDERED: Bisacodyl 10 MG Supp RECTAL PRN (10:46)
--- NOTE | 2018-07-14 15:17 | P.PNONC ---
Subjective Interval history: Patient sitting in bed, in no acute distress. Her left arm is now in a sling. She reports increased comfort from it not hanging dependently. She has continued to work with therapy in hopes to increase strength in that arm. Objective Vital Signs/Intake & Output: Vital Signs 07/13/18 16:00 07/13/18 20:00 07/13/18 21:15 Temperature 98.2 F 98.2 F Pulse Rate 66 62 Respiratory Rate 20 20 Blood Pressure 109/55 L 106/54 L Pulse Oximetry 97 96 97 07/14/18 00:00 07/14/18 04:00 07/14/18 08:00 Temperature 98.6 F 98.3 F 98 F Pulse Rate 56 L 55 L 63 Respiratory Rate 18 18 16 Blood Pressure 98/53 L 109/55 L 106/57 L Pulse Oximetry 95 98 100 07/14/18 12:00 Temperature 97.3 F L Pulse Rate 69 Respiratory Rate 17 Blood Pressure 110/58 L Pulse Oximetry 95 Intake & Output 07/13/18 07/14/18 07/14/18 18:59 06:59 18:59 Intake Total 480 / 480 Balance 480 / 480 Weight 60.1 kg Intake: Oral 480 / 480 Other: # Voids 4 5 Result Diagrams: 07/13/18 07:10 07/13/18 07:10 Medications: Active Medications Generic Name Dose Route Start Last Admin Trade Name Freq PRN Reason Stop Dose Admin Acetaminophen 650 mg 07/11/18 12:35 07/12/18 18:00 Tylenol PO 650 mg Q4H PRN Administration Temp > 100.4/MASCORRO Hydrocodone Bitart/Acetaminophen 1 tab 07/12/18 18:40 07/14/18 12:02 [place] 5/325 PO 1 tab Q6H PRN Administration PAIN SCALE 6 TO 10 Sodium Chloride 1,000 mls @ 100 mls/hr 07/11/18 14:00 07/14/18 15:05 Ns Inj IV.CONT Not Given .Q10H KIERSTEN Lacosamide 50 mg 07/13/18 09:00 07/14/18 09:11 Vimpat PO 50 mg BID KIERSTEN Administration Lorazepam 0.5 mg 07/11/18 16:46 07/11/18 21:08 Ativan PO 0.5 mg Q12H PRN Administration ANXIETY AND/OR INSOMNIA Sodium Chloride 2 ml 07/11/18 09:45 07/11/18 14:08 Ns Flush IV.FLUSH 2 ml PRN PRN Administration FLUSH AFTER USING IV ACCESS Objective Remarks: GENERAL: Chronically ill appearing middle aged female patient, in no acute distress. SKIN: Warm and dry. HEAD: Normocephalic. EYES: No scleral icterus. No injection or drainage. NECK: Supple, trachea midline. CARDIOVASCULAR: +S1/S2 without murmurs. RESPIRATORY: Posterior breath sounds clear, equal bilaterally. Nonlabored. GASTROINTESTINAL: Abdomen soft, non-tender, nondistended. EXTREMITIES: No cyanosis, or edema. MUSCULOSKELETAL: Adequate muscle tone. Decreased tone LUE. NEUROLOGICAL: Awake, alert, and oriented x3. Left-sided weakness, arm > leg. Left arm in sling. PSYCHIATRIC: Appropriate mood and affect; insight and judgment normal. Assessment/Plan - Plan This is a 58-year-old female patient with no major past medical history. She has had increased weakness to the left upper arm and leg for approximately 1 month. Upon hospitalization she was noted to have 3 lesions in the brain consistent with metastasis. She also had a CT scan of the abdomen and pelvis which showed right middle lobe, malignant appearing mass suspicious for bronchogenic malignancy. Plan: 1. Left-sided weakness, with brain lesions suspicious for metastasis. Radiation oncology consulted, recommendations for radiofrequency surgery after pathology is confirmed. 2. Right middle lobe mass, status post CT-guided biopsy on 07/12/18. Pathology pending. 3. Await biopsy results. 4. Continue supportive care. - Attending Statement The exam, history, and the medical decision-making described in the above note were completed with the assistance of the mid-level provider. I reviewed and agree with the findings presented. I attest that I had a [id number] encounter with the patient on the same day, and personally performed and documented my assessment and findings in the medical record. Patient is still complaining of weakness of left upper extremity Weakness of left lower extremity has improved and she is able to walk Pathology report reviewed which showed that she has non-small cell lung cancer, subtype adenocarcinoma We discussed that she has a stage IV non-small cell lung cancer Patient will receive stereotactic radiosurgery for brain metastasis I will arrange PET scan as an outpatient when she will come to the office for follow-up Start Decadron 4 mg p.o. 3 times daily for vasogenic edema around the brain metastasis. This may improve the weakness of left upper extremity Case discussed with neurologist Dr. Crawford and nurse practitioner Brooke Aldrich Patient can be discharged from oncology standpoint Please make an outpatient appointment with Dr. Dykes and myself for next week I will order armored car driver mutations such as EGFR, ALK, ROS, BRAF and PD- L1 on lung mass biopsy
--- NOTE | 2018-07-14 15:18 | P.PN ---
Subjective Interval history: Patient is seen walking around room. She demonstrates to me that she is able to make a fist with her left hand. She would like a sling if possible for occasional comfort use as the arm becomes painful hanging after a while. Otherwise has no new complaints. Nursing reports no adverse overnight events. Physical Exam Vital signs: Vital Signs 07/13/18 16:00 07/13/18 20:00 07/13/18 21:15 Temperature 98.2 F 98.2 F Pulse Rate 66 62 Respiratory Rate 20 20 Blood Pressure 109/55 L 106/54 L Pulse Oximetry 97 96 97 07/14/18 00:00 07/14/18 04:00 07/14/18 08:00 Temperature 98.6 F 98.3 F 98 F Pulse Rate 56 L 55 L 63 Respiratory Rate 18 18 16 Blood Pressure 98/53 L 109/55 L 106/57 L Pulse Oximetry 95 98 100 07/14/18 12:00 Temperature 97.3 F L Pulse Rate 69 Respiratory Rate 17 Blood Pressure 110/58 L Pulse Oximetry 95 Intake & Output 07/13/18 07/14/18 07/14/18 18:59 06:59 18:59 Intake Total 480 / 480 Balance 480 / 480 Weight 60.1 kg Intake: Oral 480 / 480 Other: # Voids 4 5 Narrative: GENERAL: Well-nourished, well-developed adult female in no obvious distress. SKIN: Warm and dry. HEAD: Atraumatic. Normocephalic. CARDIOVASCULAR: Regular rate and rhythm. RESPIRATORY: No accessory muscle use. Clear to auscultation. Breath sounds equal bilaterally; diminished at bases. GASTROINTESTINAL: Abdomen soft, non-tender, non-distended. Positive bowel sounds. MUSCULOSKELETAL: Extremities without clubbing, cyanosis, or edema. No obvious deformities. Left arm very weak. NEUROLOGICAL: Awake and alert. No obvious cranial nerve deficits. Motor grossly within normal limits. Normal speech. PSYCHIATRIC: Appropriate mood and affect; insight and judgment good. Results - Labs CBC & Chem 7: 07/13/18 07:10 07/13/18 07:10 Assessment and Plan - Plan Mrs. Aaron is a 58 yo F with: 07/14 update -awaiting neurology and oncology clearance to discharge. Neurologic deficits Impression: Facial droop, left upper extremity and lower extremity weakness. Imaging suggestive of metastatic cancer Head CT- 1. Abnormal right mid sylvian region suspicious for neoplastic process. Head MRI- 1. Metastatic disease as above. Given the appearance most likely site is either lung or breast. MRA head- negative Neck MRA- negative -Neurology consulted -Neurosurgery consulted -Dexamethasone 4mg q6hrs for cerebral edema -Keppra 500mg BID for seizure PPX; keppra stopped and changed to vimpat 07/13 -PT/ST/OT -DVT PPX Suspicion for malignancy Impression: Concern for metastatic cancer CT Chest- There is a dominant partially necrotic-appearing soft tissue mass in the right middle lobe suspicious for primary bronchogenic malignancy, with a few scattered bilateral tiny noncalcified nodules which are nonspecific and the possibility of metastatic deposits are not excluded. There is right hilar adenopathy characteristic of metastatic disease. CT A/P- 1. Right middle lobe malignant appearing mass suspicious for bronchogenic malignancy. 2. Left adrenal nodule is noted and indeterminate. Metastatic deposit can have this appearance. CXR- 6mm mass in RLL suspicious for neoplastic process with minimal postobstructive changes -Hematology consulted -Radiation oncology consulted; recommendation for radiofrequency surgery after pathology is confirmed. -CT lung biopsy performed today; no complications -pathology pending R sided Chest pain/SOB after biopsy -repeat CXR - unremarkable; no pneumothorax -Will give PRN [place] 5 for pain Anxiety -PRN Ativan DVT PPX -SCD's currently Code Status: Full Code
--- NOTE | 2018-07-14 17:29 | P.PNNEU ---
Subjective Subjective Comments: No cp, no dyspnea, no mascorro, no vision loss; denies any seizure tolerating Vimpat Active Medications: Active Medications Acetaminophen (Tylenol) 650 mg PO Q4H PRN PRN Reason: Temp > 100.4/MASCORRO Last Admin: 07/12/18 18:00 Dose: 650 mg Hydrocodone Bitart/Acetaminophen ([place] 5/325) 1 tab PO Q6H PRN PRN Reason: PAIN SCALE 6 TO 10 Last Admin: 07/14/18 12:02 Dose: 1 tab Al Hydroxide/Mg Hydroxide (Milk Of Magnesia Liq) 30 ml PO Q12H PRN PRN Reason: Mild Constipation Bisacodyl (Dulcolax Supp) 10 mg RECTAL DAILY PRN PRN Reason: SEVERE CONSITIPATION Sodium Chloride (Ns Inj) 1,000 mls @ 100 mls/hr IV.CONT .Q10H [facility] Last Admin: 07/14/18 15:05 Dose: Not Given Lacosamide (Vimpat) 50 mg PO BID [facility] Last Admin: 07/14/18 09:11 Dose: 50 mg Lactulose (Lactulose Liq) 30 ml PO DAILY PRN PRN Reason: SEVERE CONSITIPATION Lorazepam (Ativan) 0.5 mg PO Q12H PRN PRN Reason: ANXIETY AND/OR INSOMNIA Last Admin: 07/11/18 21:08 Dose: 0.5 mg Ondansetron HCl (Zofran Inj) 4 mg IV.PUSH Q6H PRN PRN Reason: NAUSEA OR VOMITING Senna/Docusate Sodium (Barbara-Colace) 1 tab PO BID [facility] Sennosides (Senokot) 17.2 mg PO Q12H PRN PRN Reason: Moderate Constipation Sodium Chloride (Ns Flush) 2 ml IV.FLUSH PRN PRN PRN Reason: FLUSH AFTER USING IV ACCESS Last Admin: 07/11/18 14:08 Dose: 2 ml Allergies/Adverse Reactions: Allergies Allergy/AdvReac Type Severity Reaction Status Date / Time No Known Allergies Allergy Unverified 07/11/18 09:28 Review of Systems All other systems reviewed negative except as stated in HPI Physical Exam Vital signs: Vital Signs 07/13/18 20:00 07/13/18 21:15 07/14/18 00:00 Temperature 98.2 F 98.6 F Pulse Rate 62 56 L Respiratory Rate 20 18 Blood Pressure 106/54 L 98/53 L Pulse Oximetry 96 97 95 07/14/18 04:00 07/14/18 08:00 07/14/18 12:00 Temperature 98.3 F 98 F 97.3 F L Pulse Rate 55 L 63 69 Respiratory Rate 18 16 17 Blood Pressure 109/55 L 106/57 L 110/58 L Pulse Oximetry 98 100 95 07/14/18 16:00 07/14/18 17:18 Temperature 98 F Pulse Rate 71 Respiratory Rate 17 Blood Pressure 116/57 L Pulse Oximetry 95 95 Intake & Output 07/13/18 07/14/18 07/14/18 18:59 06:59 18:59 Intake Total 480 / 480 Balance 480 / 480 Weight 60.1 kg Intake: Oral 480 / 480 Other: # Voids 4 5 Narrative: GENERAL: in NAD, SKIN: Warm and dry. HEAD: Atraumatic. Normocephalic. EYES: Pupils equal and round. No scleral icterus. ENT: No nasal bleeding or discharge. Mucous membranes pink and moist. NECK: Trachea midline. No JVD. CARDIOVASCULAR: Regular rate and rhythm. RESPIRATORY: No accessory muscle use. GASTROINTESTINAL: Abdomen soft, non-tender, nondistended. MUSCULOSKELETAL: Extremities without clubbing, cyanosis, or edema. No obvious deformities. NEUROLOGICAL: Awake and alert. No aphasia, mildly dysarthric speech, follows, reduced left nasolabial fold, mild left hemiparesis upper extremity 1-2 out of 5 , left lower extremity, left hemisensory brisk reflex on the left gait not assessed secondary to fall risk PSYCHIATRIC: Appropriate mood and affect; insight and judgment normal. - Constitutional no acute distress - Routine HEENT Exam Head: Present: normocephalic Review/Management - Diagnosis (1) Brain metastasis Code(s): C79.31 - Secondary malignant neoplasm of brain Status: Acute Current Visit: Yes (2) Tobacco use Code(s): Z72.0 - Tobacco use Status: Acute Current Visit: Yes (3) Lung cancer metastatic to brain Code(s): C34.90 - Malignant neoplasm of unspecified part of unspecified bronchus or lung; C79.31 - Secondary malignant neoplasm of brain Status: Acute Current Visit: Yes - Review/Management Plan: Seen by oncology, neurosurgery, radiation oncology Recommendations Biopsy results back apparently with non-small cell lung cancer Seen by oncology DC home on Vimpat and DEXA Follow-up with oncology and follow-up PCP Follow-up with us as needed
[2018-07-14] MEDS: Senna/Docusate Sodium 8.6/50 MG Tablet PO SCH (20:21)
[2018-07-15] MEDS: Sod Chloride 0.9% Inj 1,000 ML IV.CONT SCH ×2 (00:27→08:47)
--- NOTE | 2018-07-15 07:47 | P.DS ---
Date of admission: 07/11/18 11:41 Primary care physician: Michael Verduzco Attending physician on discharge: Fabio King Anticipated date of discharge: 07/15/18 Brief History from admission: Mrs. Aaron is a 58 yo F with PMH of tobacco abuse who presented to [facility] with slurred speech and left extremity weakness. 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 She also stated that her left arm was numb. Patient thought this was arthritis so kept working until she was told to leave. Patient states that she did not notice change in speech but she was told that her speech was slurred by her boyfriend 1.5 weeks ago. Last night, patient noticed that her left leg was weaker, and that her left arm started to hurt. For these reasons, she called her hog confinement system manager and was brought to the ED today. Patient does not report associated vision changes. She has chronic headaches but no changes. She denies change in bowel/bladder dysfunction with exception of her chronic constipation. She has had more shortness of breath lately but denies chest pain. Patient reports ~80 pk years smoking and left hand reconstruction but otherwise denies medical problems. PMH- no problems PSH- reconstruction of L hand Allergies- none FH- family - heart attacks, cancer; unspecified SH- Smoking- 2PPD for since 17. No drinking, no drugs Patient update on day of discharge: Patient is doing well and appears ready to go home. No adverse events overnight. Tolerating Vimpat. DS: Diagnosis - Discharge Diagnosis (1) Lung cancer metastatic to brain Status: Acute (2) Stroke Status: Acute DS: Medications - Discharge Medications Prescriptions: dexamethasone 4 mg PO TID #90 tab lacosamide [Vimpat] 50 mg PO BID #60 tab pantoprazole 40 mg PO DAILY #30 tab DS: Summary Hospital Course: Patient is a 58-year-old female who was found to have non-small cell lung cancer with metastatic disease to the brain. Biopsy of lung mass pathology report showed that she has stage IV non-small cell lung cancer, subtype adenocarcinoma. Plan is for outpatient follow-up. Patient will receive stereotactic radiosurgery for brain metastasis. PET scan as an outpatient. Started on Decadron 4 mg p.o. 3 times daily for vasogenic edema around the brain metastasis. Patient does have some left-sided weakness primarily in the upper extremity. Neurology was consulted and recommended starting Vimpat and dexamethasone. - Time Spent with Patient Total time spent providing and/or coordinating discharge services: Less than 30 minutes - Quality: VTE Deep Vein Thrombosis/Pulmonary Embolism Present on Admission: No Exam Vital signs: Vital Signs 07/14/18 08:00 07/14/18 12:00 07/14/18 16:00 Temperature 98 F 97.3 F L 98 F Pulse Rate 73 69 71 Respiratory Rate 16 17 17 Blood Pressure 106/57 L 110/58 L 116/57 L Pulse Oximetry 100 95 95 07/14/18 17:18 07/14/18 20:00 07/15/18 00:00 Temperature 97.9 F 97.9 F Pulse Rate 66 65 Respiratory Rate 16 15 Blood Pressure 111/53 L 110/61 Pulse Oximetry 95 93 L 99 07/15/18 04:00 Temperature 97.6 F Pulse Rate 60 Respiratory Rate 15 Blood Pressure 113/54 L Pulse Oximetry 97 Intake & Output 07/14/18 07/15/18 07/15/18 18:59 06:59 18:59 Intake Total 480 / 480 Balance 480 / 480 Weight 59.7 kg Intake: Oral 480 / 480 Other: # Voids 4 5 Narrative: GENERAL: Chronically ill appearing middle aged female patient, in no acute distress. SKIN: Warm and dry. HEAD: Normocephalic. EYES: No scleral icterus. No injection or drainage. NECK: Supple, trachea midline. CARDIOVASCULAR: +S1/S2 without murmurs. RESPIRATORY: Posterior breath sounds clear, equal bilaterally. Nonlabored. GASTROINTESTINAL: Abdomen soft, non-tender, nondistended. EXTREMITIES: No cyanosis, or edema. MUSCULOSKELETAL: Adequate muscle tone. Decreased tone LUE. NEUROLOGICAL: Awake, alert, and oriented x3. Left-sided weakness, arm > leg. Left arm in sling. PSYCHIATRIC: Appropriate mood and affect; insight and judgment normal. Results Procedures completed during hospitalization: Lung biopsy - Impressions ITS Impressions Abdomen/Pelvis CT 07/11/18 00:00 CONCLUSION: 1. Right middle lobe malignant appearing mass suspicious for bronchogenic malignancy. 2. Left adrenal nodule is noted and indeterminate. Metastatic deposit can have this appearance. Chest CT 07/11/18 00:00 CONCLUSION: 1. There is a dominant partially necrotic-appearing soft tissue mass in the right middle lobe suspicious for primary bronchogenic malignancy, with a few scattered bilateral tiny noncalcified nodules which are nonspecific and the possibility of metastatic deposits are not excluded. There is right hilar adenopathy characteristic of metastatic disease. Head CT 07/11/18 09:45 CONCLUSION: 1. Abnormal right mid sylvian region suspicious for neoplastic process. 2. MRI of the brain is suggested. . Head MRI 07/11/18 09:45 CONCLUSION: 1. Vasogenic edema in the right sylvian region suspicious for neoplastic process 2. Secondary of edema in the right superior cerebellar hemisphere that could be edema from an ischemic process. 3. There is no parenchymal hemorrhage. 4. Delayed contrasted CT scan is pending. Head MRA 07/11/18 09:45 CONCLUSION: 1. Negative MRA of the brain Neck MRA 07/11/18 09:45 CONCLUSION: 1. Negative MRA of the carotids for hemodynamically significant stenosis 2. Both vertebral arteries are patent. Percent stenosis is calculated using the diameter of the stenotic region over the diameter of the normal distal internal carotid artery Lung Biopsy CT 07/12/18 00:00 CONCLUSION: 1. Uncomplicated CT guided biopsy. Chest X-Ray 07/13/18 07:00 CONCLUSION: No significant interval change. 5 cm right perihilar mass again seen. Discharge Plan - Discharge Disposition Patient Disposition: 01 Discharge Home - Discharge Condition Condition: Fair - Discharge Order Discharge Orders: Discharge Order (Routine); Ordered 07/15/18 Ordered By: Brooke Damon - Discharge Details Discharge Comment: Will need outpatient PT. - Physicians Team Primary Care Provider: Michael Verduzco Attending Provider: Fabio King Other Providers: Jorge Corcoran MD ; Juanis Angela MD ; Ace Pastor MD ; Tony Lockhart MD
[2018-07-15] MEDS: Senna/Docusate Sodium 8.6/50 MG Tablet PO SCH (08:47)
[2018-07-15] MEDS: Lacosamide 50 MG Tablet PO SCH (08:47)
[2018-07-15 09:04] VITALS: BP 102/56; PULSE 59; RESP 16; TEMP 97.7
[2018-07-15 10:28] VITALS: O2SAT 94
== END 2018-07-15 11:00 | disposition home or self-care (01) ==
LOC: NEPE 09:06 → NEDA 11:41 → N05 14:58
PROVIDERS: ADMIT Hospitalist; ATTEND Hospitalist